=== PATIENT | female | born 1965 | race Caucasian/White ===

== ENCOUNTER → 2017-11-25 | Outpatient (CLI) | payer OTHER ==
[~2017-11-25] MED LIST: BUPR-79 PO; CLR10 PO; FLUO20CA35 PO; PANT40TA PO
--- NOTE | 2017-11-26 14:04 | MAMMOGRAPHY REPORT ---
BILATERAL DIGITAL SCREENING MAMMOGRAM TOMOSYNTHESIS WITH CAD: 11/25/2017 CLINICAL HISTORY: Routine screening. Patient has no complaints. TECHNIQUE: Breast tomosynthesis in addition to standard 2D mammography was performed. Current study was also evaluated with a Computer Aided Detection (CAD) system. COMPARISON: Comparison is made to exams dated: 10/29/2010 mammogram, 09/24/2009 mammogram - [facility], 09/19/2008, and 08/20/2005 mammogram - [facility]. BREAST COMPOSITION: There are scattered areas of fibroglandular density in both breasts. FINDINGS: There are new linear branching microcalcifications in the approximate 12:00 anterior throu gh posterior left breast, spanning approximately 10 cm that are new comparing to the prior mammogram performed in 2010. Additional spot magnification views are recommended. Possible additional faint c lusters of microcalcifications in the lateral middle one third and anterior one third of the left satya ast, warranting additional spot magnification views. No other suspicious mass, architectural distortion or cluster of microcalcifications is seen. IMPRESSION: ACR BI-RADS CATEGORY 0: INCOMPLETE EVALUATION: NEED ADDITIONAL IMAGING EVALUATION The new linear branching left breast microcalcifications need additional imaging evaluation. The patient will be called to schedule an appointment. Approximately 10% of breast cancers are not detected with mammography. A negative mammographic report should not delay biopsy if a clinically suggestive mass is present. Pat Anders M.D. ay/:11/26/2017 08:13:21 Aerospace Mechanic: Isatu Crane, [facility] letter sent: Addl Imaging 0 BI-RADS Code: ACR BI-RADS Category 0: Incomplete Evaluation: Need Additional Imaging Evaluation
== END | disposition home or self-care (01) ==
LOC: C.MAMM 17:27
PROVIDERS: ATTEND Student in an Organized Health Care Education/Training Program
DX: Z12.31 Encounter for screening mammogram for malignant neoplasm of breast (principal)

== ENCOUNTER → 2017-11-27 | Outpatient (CLI) | payer OTHER ==
--- NOTE | 2017-11-30 08:08 | MAMMOGRAPHY REPORT ---
UNILATERAL LEFT DIGITAL DIAGNOSTIC MAMMOGRAM: 11/27/2017 CLINICAL HISTORY: 52-year-old woman called back from screening mammography for a newly visualized lef t breast microcalcifications. TECHNIQUE: Spot magnification left CC and ML views were obtained. COMPARISON: Comparison is made to exams dated: 11/25/2017 mammogram, 10/29/2010 mammogram, 09/24/2009 mammogram - [facility], 09/19/2008, and 08/20/2005 mammogram - [facility]. BREAST COMPOSITION: There are scattered areas of fibroglandular density in the left breast. FINDINGS: There are fine pleomorphic and linear branching calcifications in the 12:00 left breast ex tending approximately 9.3 cm in AP dimension, extending throughout the anterior, middle and posterior one third of the breast. Measurements are best obtained from the screening exam given that not all the calcifications are included in the suuha-vl-iffe with each spot magnification view obtained today . When comparing back to prior available mammograms, these calcifications are new and are suspicious for DCIS given their morphology. Definitive characterization with tissue sampling is recommended. In addition to the fine pleomorphic and linear branching calcifications, other small groupings of saqib nt amorphous calcifications are identified in the far lateral, middle one third of the left breast on the CC spot magnification views, thought to project in the approximate 3:00 axis based on the full f ield left MLO view. When comparing to prior mammograms, these faint amorphous calcifications are als o new and considered indeterminate. A stereotactic guided biopsy is recommended given that the most prominent grouping of amorphous calcifications is located 5 cm lateral to the linear branching calcif ications. IMPRESSION: ACR BI-RADS CATEGORY 5: HIGHLY SUGGESTIVE OF MALIGNANCY 1. Left breast stereotactic guided biopsy is recommended for new suspicious fine pleomorphic and lizett ear branching calcifications extending over 9 cm in AP dimension within the 12:00 left breast. 2. A second left breast stereotactic guided biopsy is recommended for a smaller grouping of amorphou s microcalcifications in the lateral, approximate 3:00 left breast that is also new comparing to prio r exams. These calcifications differ in morphology from the highly suspicious linear branching calci fications and are located 5 cm lateral to the linear branching calcifications. These results and recommendations were discussed with the patient at the time of the exam. She tenta tively scheduled the left breast stereotactic biopsies prior to leaving our department. Approximately 10% of breast cancers are not detected with mammography. A negative mammographic report should not delay biopsy if a clinically suggestive mass is present. Pat Anders M.D. ay/:11/27/2017 14:25:21 Bird Raiser: Denisse HUDSON(R)(M), [facility] letter sent: Abnormal 4/5 BI-RADS Code: ACR BI-RADS Category 5: Highly Suggestive Of Malignancy
--- NOTE | 2017-12-04 17:11 | CODING QUERY NO DIAGNOSIS ---
TREATMENT RENDERED WITHOUT A DIAGNOSIS To promote full compliance with coding requirements relating to patient care, physician participation is requested in all cases of body team member uncertainty. Please assist us with providing a diagnosis/symptom for the test(s) below: A diagnosis/symptom was not documented on your Order. A valid diagnosis/symptom is required to bill all insurances. Please remember that we are unable to code a diagnosis of rule out, probable, possible, questionable, or suspected. DATE OF SERVICE: 11/27/17 Tests that require a diagnosis: * DIAGNOSTIC LEFT MAMMOGRAM DIAGNOSIS: Provider Signature: Date: Thank you [facility]Austina [facility] Information Management Once completed, please kindly fax back to [phone] For questions please call [phone]
== END | disposition home or self-care (01) ==
LOC: C.MAMM 12:40
PROVIDERS: ATTEND Student in an Organized Health Care Education/Training Program
DX: R92.8 Other abnormal and inconclusive findings on diagnostic imaging of breast (principal); R92.0 Mammographic microcalcification found on diagnostic imaging of breast; R92.1 Mammographic calcification found on diagnostic imaging of breast

== ENCOUNTER → 2017-12-11 | Outpatient (CLI) | payer OTHER ==
--- NOTE | 2017-12-11 13:30 | Discharge Instructions ---
Discharge Instructions Procedure Procedure Date: Dec 11, 2017. Reason for visit: Left Calcs X2. Discharge Discharge Date: Dec 11, 2017. Discharge Diagnosis: status post breast biopsy Instructions Activity Recommendations: Additional Limitations (see below) Return to School/Work: no limitations Recommended Home Diet: No Limitations Provider Instructions: ACTIVITY RECOMMENDATIONS: * No lifting, pushing, pulling or exercising the affected side for three days. RETURN TO SCHOOL/WORK: * You may return to work/school after the procedure, but do not perform any strenuous activities for 24 to 48 hours. MEDICATIONS: * Tylenol (two 325 mg) every four to six hours if needed for mild pain (if not allergic to Tylenol). DIET: * Resume previous diet. SPECIAL CARE INSTRUCTIONS: * Keep biopsy site dry for 24 hours. May shower after 24 hours, but do not soak (bathe) incision. * May remove Tegaderm (plastic patch) tomorrow AFTER showering. * Leave the steri-strips on for one week. Allow the steri-strips to fall off by themselves. If not off after one week, you may remove them. You may place a Bandaid crosswise over the strips, if desired. * Apply ice 10 minutes on and 10 minutes off as needed. * Wear a bra at bedtime to sleep more comfortably for 2-3 days. * Your referring physician should have the results after approximately 5 to 7 business days. * Call for unusual bleeding, fever, drainage, etc or if you have any questions call during normal business hours or after hours call Dr Villarreal, . FOLLOW UP VISIT: Follow-up with Referring Physician as scheduled. Allergies Coded Allergies: Sulfa Drugs (Verified Allergy, Severe, SHORTNESS OF BREATH, 09/22/16) Codeine (Verified Adverse Reaction, Unknown, "SICK" WITH TYLENOL W/CODEINE , 09/22/16) Remy Matos Recommendations: Call your doctor if: * Temperature above 101 degrees * Pain not relieved by pain medicine ordered * There is increased drainage or redness from any incision * You have any unanswered questions or concerns. Your Doctors Instructions noted above were prepared by provider Beth Villarreal. Patient Signature Section: Patient Instructions Signature Page Renetta Stevens Patient (or Guardian) Signature/Date: I have read and understand the instructions given to me by my caregivers. Caregiver/RN/Doctor Signature/Date: The above-named patient and/or guardian has received patient instructions on this date. + Original Patient Signature Page (only) stays with chart. Please make copy for patient.
--- NOTE | 2017-12-14 15:19 | MAMMOGRAPHY REPORT ---
UNILATERAL LEFT DIGITAL DIAGNOSTIC MAMMOGRAM: 12/11/2017 CLINICAL HISTORY: Status post left breast stereotactic biopsy 2. TECHNIQUE: Postprocedural left CC and ML views were obtained. COMPARISON: Comparison is made to exams dated: 11/27/2017 mammogram, 11/25/2017 mammogram, and 10/29/19 11 mammogram - [facility]. BREAST COMPOSITION: There are scattered areas of fibroglandular density in the left breast. FINDINGS: A new dumbbell-shaped biopsy marker clip is seen at the site of the biopsied calcifications in the left 12:00 breast (site "A"). A new T-shaped biopsy clip is seen at the site of the biopsied calcifications in the left 3:00 breast (site "B"). No significant postbiopsy hematoma is seen. IMPRESSION: POST PROCEDURE IMAGING FOR MARKER PLACEMENT New biopsy marker clips status post left breast stereotactic biopsy 2. Pathology results are pendin g. Approximately 10% of breast cancers are not detected with mammography. A negative mammographic report should not delay biopsy if a clinically suggestive mass is present. Beth Villarreal M.D. ah/:12/11/2017 14:05:34 Machine Fixer: Ankita HUDSON(R)(M), [facility] BI-RADS Code: Post Procedure Imaging For Marker Placement
== END | disposition home or self-care (01) ==
LOC: C.MAMM 12:23
PROVIDERS: ATTEND Student in an Organized Health Care Education/Training Program
DX: R92.0 Mammographic microcalcification found on diagnostic imaging of breast (principal); D05.92 Unspecified type of carcinoma in situ of left breast

== ENCOUNTER → 2017-12-29 | Outpatient (CLI) | payer OTHER ==
[~2017-12-29] MED LIST changes: +GADAVIST IV PRN
--- NOTE | 2017-12-31 07:52 | MAMMOGRAPHY REPORT ---
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 She presents for preoperative evaluation of both breasts. COMPARISON: Comparison is made to exams dated: 12/11/2017 stereotactic biopsy, 12/11/2017 stereotactic b iopsy, 12/11/2017 mammogram, 11/27/2017 mammogram, 11/25/2017 mammogram, and 10/29/2010 mammogram - [facility]. TECHNIQUE: Using a 1.5 Nicole magnet and dedicated breast coil, multisequence axial images were obtain ed through the breasts. After uneventful IV administration of 14 mL of Gadavist, dynamic multiphase contrast-enhanced axial images, and sagittal postcontrast were obtained. Temporal subtraction axial images and 3-D MIP images are provided. Everything was then reviewed on a 3-D workstation, [employer]. FINDINGS: Right breast: There is minimal background parenchymal enhancement. No suspicious enhancing mass, non -mass enhancement, suspicious kinetics or architectural distortion identified in the right breast. N o focal skin thickening or nipple retraction. No suspicious right axillary, subpectoral or internal mammary lymphadenopathy. Left breast: There is minimal background parenchymal enhancement of the left breast. There is suscep tibility artifact from a metallic biopsy marker clip in the 12:00 middle one third of the left breast , denoting the site of biopsy-proven high-grade ductal carcinoma in situ. There is linear non-mass e nhancement extending anterior and posterior to the biopsy marker clip which appears to be confined to one segment, measuring 7.0 cm in AP by 1.1 cm in craniocaudal by 0.8 cm in transverse dimension. A second small focus of susceptibility artifact is identified in the 3:00 to 4:00 middle one third of t he left breast, denoting the site of prior benign stereotactic biopsy. No other suspicious enhancing masses, non-mass enhancement, architectural distortion or suspicious kinetics identified in the left breast. No evidence of nipple retraction. The retromammary fat is intact. No suspicious left axil fly, subpectoral or internal mammary lymphadenopathy. IMPRESSION: ACR BI-RADS CATEGORY 6: KNOWN BIOPSY PROVEN MALIGNANCY 1. Linear non-mass enhancement in the 12:00 middle one third of the left breast denoting the biopsy- proven high-grade ductal carcinoma in situ, extending over 7 cm in AP by 1.1 cm in craniocaudal by 0. 8 cm in transverse dimension, which appears to be confined to one segment. No associated masslike en hancement or other suspicious enhancement seen in the left breast. 2. No MRI evidence of malignancy in the right breast. 3. No suspicious axillary adenopathy bilaterally. The patient will receive written notification of the results. Pat Anders M.D. ay/:12/29/2017 20:37:09 Radioactivity Technician: clinic licensed practical nurse, [facility] letter sent: Birad 6 BI-RADS Code: ACR BI-RADS Category 6: Known Biopsy Proven Malignancy
== END | disposition home or self-care (01) ==
LOC: C.MRI 15:00
PROVIDERS: ATTEND Surgery
DX: D05.12 Intraductal carcinoma in situ of left breast (principal)

== ENCOUNTER 2020-05-17 11:39 | Observation (INO) ==
--- OUTSIDE RECORDS SUMMARY | 2020-05-17 11:40 | External Medical Summary | Continuity of Care Document ---
:1965 Author Name Bhupinder Silvestre, Provider Address Unavailable Unavailable , Care Team Providers Name Role Phone Unavailable Unavailable Unavailable Salina Silvestre, Colten Allan Unavailable [email or web address] ROLLINS Unavailable Unavailable Unavailable Unavailable Unavailable Problems Allergic rhinitis due to dust (477.8) (J30.89) Allergies and Adverse Reactions No Known Drug Allergies (Allergy) Medications Estradiol 2 MG Oral Tablet; TAKE 1 TABLET DAILY DIRECTED. Konrad Downing Start: 29-Oct-2010 Refills: 0 Fluticasone Propionate 50 MCG/ACT Nasal Suspension; USE 2 SPRAYS IN EACH NOSTRIL ONCE DAILY Konrad Downing Start: 29-Oct-2010 Quantity: 3 Refills: 3 Fexofenadine HCl - 180 MG Oral Tablet; TAKE 1 TABLET DAILY. Konrad Downing Start: 29-Oct-2010 Quantity: 90 Refills: 3 Procedures History of Dilation And Curettage Status : Completed Immunizations Immunizations not documented Social History - Smoking Status Ex-smoker Plan of Treatment Planned Observations Planned Goals not documented Results No Known Results Results not documented
[2020-05-17 12:11] LABS: Basophils # (auto) 0.02 K/uL (0-0.2); Basophils % (auto) 0.3 %; Eosinophils # (auto) 0.06 K/uL (0-0.5); Eosinophils % (auto) 0.8 %; Hematocrit (blood only) 40.7 % (37-47); Hemoglobin 13.7 g/dL (12.0-16.0); Immature Granulocytes # (auto) 0.02 K/uL (0.00-0.02); Immature Granulocytes % (auto) 0.3 %; Lymphocytes # (auto) 2.25 K/uL (1.2-3.4); Lymphocytes % (auto) 29.9 %; Mean Corpuscular Hgb Conc 33.7 g/dL (32-36); Mean Corpuscular Volume 89.3 fL (80-100); Mean Platelet Volume 10.3 fL (7.4-10.4); Monocytes # (auto) 0.53 K/uL (0.11-0.59); Neutrophils # (auto) 4.65 K/uL (1.4-6.5); Neutrophils % (auto) 61.7 %; Platelet Count 207 K/uL (130-400); RDW Coefficient of Variation 13.5 % (11.5-14.5); RDW Standard Deviation 43.7 fL (36.4-46.3); Red Blood Count 4.56 M/uL (4.2-5.4); White Blood Count 7.53 K/uL (4.8-10.8)
--- NOTE | 2020-05-17 12:29 | XRay Report ---
XR chest 1V portable CLINICAL HISTORY: Chest Pain dyspnea COMPARISON STUDY: 11/16/2010 FINDINGS: The bones soft tissues and hemidiaphragms are normal. The cardiomediastinal silhouette is n ormal. The lungs are clear. The pulmonary vasculature is normal. IMPRESSION: Negative chest. ACT 112: Negative or not required by law. The above report was generated using voice recognition software. It may contain grammatical, syntax or spelling errors. Electronically signed by: Richard Delgado M.D. 05/17/2020 12:27 PM
[2020-05-17 12:30] LABS: Alanine Aminotransferase 22 U/L (12-78); Albumin Level 3.5 gm/dl (3.4-5.0); Aspartate Aminotransferase 16 U/L (15-37); BUN Creatinine Ratio 17.1 (10-20); Blood Urea Nitrogen 11 mg/dl (7-18); Calcium 8.3 mg/dl (8.5-10.1); Carbon Dioxide 23 mmol/L (21-32); Chloride 110 mmol/L (98-107); Creatinine Clr Calc Pharmacy 136.3 ml/min; Est GFR (Non-African American) 99.2; Glucose 101 mg/dl (70-99); Potassium 3.8 mmol/L (3.5-5.1); Sodium 140 mmol/L (136-145)
[2020-05-17 12:34] LABS: Albumin Globulin Ratio 0.9 (0.9-2); Alkaline Phosphatase 81 U/L (45-117); Bilirubin,Total 0.9 mg/dl (0.2-1); Globulin 3.8 gm/dl (2.5-4.0); Total Protein 7.3 gm/dl (6.4-8.2); Troponin I < 0.015 ng/ml (0-0.045)
--- NOTE | 2020-05-17 12:40 | Emergency Department Note ---
History of Present Illness General Chief complaint: Chest Pain Stated complaint: CHEST PAIN Time Seen by Provider: 05/17/20 12:05 Source: patient Limitations: no limitations History of Present Illness Provider complaint: Chest pain Onset (ago): hour(s) Location: chest Radiation: back, neck and extremity (Both arms and neck and back) Severity: mild Pain Consistency: + now resolved Maximum Pain Intensity: 3 Quality: + other (Pressure) Exacerbated By: + none Associated symptoms: no cough, no diaphoresis, no fever/chills, no nausea/vomiting and no shortness of breath This is a 55-year-old female who presents with an episode of chest pain starting 1115 ending at 11:35 AM today. The patient states she was driving at the time. She developed pressure in the middle of her chest which radiated down both arms and into her neck and ears as well as her back. She had no associated shortness of breath, diaphoresis, nausea or lightheadedness. She denies any recent fever, cough or cold symptoms, abdominal pain, vomiting or diarrhea, urinary symptoms or leg swelling or pain. She denies any history of diabetes, hypertension, high cholesterol or family history of cardiac disease. She rated her pain a 3 out of 10 in severity and states currently it is 0. Home Medications Home Medications Medication Instructions Recorded Confirmed Type cetirizine [Zyrtec] 10 mg PO DAILY 05/17/20 05/17/20 History fluoxetine 20 mg PO DAILY 05/17/20 05/17/20 History topiramate 25 mg PO BID 05/17/20 05/17/20 History Allergies Allergy/AdvReac Type Severity Reaction Status Date / Time Sulfa (Sulfonamide Allergy Severe SHORTNESS Verified 05/17/20 13:34 Antibiotics) OF BREATH adhesive Allergy Unknown Redness of Verified 05/17/20 13:34 Skin codeine AdvReac Unknown "SICK" Verified 05/17/20 13:34 WITH TYLENOL W/CODEINE Past Med/Surg History Medical History (Updated 05/17/20 @ 17:02 by Leon Benton MD) Anxiety Breast cancer Migraine headache Surgical History (Updated 05/17/20 @ 15:06 by Corie Ceja PA-C) History of cholecystectomy History of hysterectomy History of mastectomy Family History (Updated 05/17/20 @ 15:01 by Corie Ceja PA-C) Mother Dyslipidemia Social History (Updated 05/17/20 @ 15:08 by Corie Ceja PA-C) Smoking Status: Former smoker Hx Alcohol Use: Yes (2 drinks per day) Hx Substance Use: No Review of Systems See HPI for pertinent positives & negatives. and A total of 10 systems reviewed and were otherwise negative Physical Exam Vital Signs Vital Signs - 24 hr 05/17/20 11:42 05/17/20 11:50 05/17/20 13:52 Temperature 36.9 C Temperature Source Oral Pulse Rate 78 69 62 Pulse Rate [Finger] Pulse Rate from SpO2 Sensor 69 64 Respiratory Rate 18 14 14 Respiratory Depth Normal Blood Pressure 164/88 H 145/94 H 141/82 H Blood Pressure [Right Arm] Blood Pressure Mean 113 105 87 Blood Pressure Mean [Right Arm] Pulse Oximetry 98 96 99 Oxygen Delivery Method Room Air Sepsis Recent Fever Within 48 Hours No Sepsis New/Unexplained Change in Mental Status N/A Sepsis Action Taken by Nursing No Action Required 05/17/20 14:00 05/17/20 14:30 05/17/20 14:56 Temperature Temperature Source Pulse Rate 60 65 68 Pulse Rate [Finger] Pulse Rate from SpO2 Sensor 60 65 66 Respiratory Rate 14 14 18 Respiratory Depth Blood Pressure 131/79 137/91 137/91 Blood Pressure [Right Arm] Blood Pressure Mean 91 99 99 Blood Pressure Mean [Right Arm] Pulse Oximetry 98 99 98 Oxygen Delivery Method Sepsis Recent Fever Within 48 Hours Sepsis New/Unexplained Change in Mental Status Sepsis Action Taken by Nursing 05/17/20 15:01 05/17/20 15:31 05/17/20 15:32 Temperature Temperature Source Pulse Rate 66 70 66 Pulse Rate [Finger] Pulse Rate from SpO2 Sensor 66 69 66 Respiratory Rate 14 17 17 Respiratory Depth Blood Pressure 124/92 122/93 Blood Pressure [Right Arm] Blood Pressure Mean 96 110 Blood Pressure Mean [Right Arm] Pulse Oximetry 99 99 100 Oxygen Delivery Method Room Air Sepsis Recent Fever Within 48 Hours Sepsis New/Unexplained Change in Mental Status Sepsis Action Taken by Nursing 05/17/20 16:58 Temperature Temperature Source Pulse Rate Pulse Rate [Finger] 66 Pulse Rate from SpO2 Sensor Respiratory Rate 18 Respiratory Depth Blood Pressure Blood Pressure [Right Arm] 115/78 Blood Pressure Mean Blood Pressure Mean [Right Arm] 90 Pulse Oximetry 97 Oxygen Delivery Method Room Air Sepsis Recent Fever Within 48 Hours Sepsis New/Unexplained Change in Mental Status Sepsis Action Taken by Nursing Constitutional: Vital signs reviewed. Eyes: Pupils are equal round reactive to light. Conjunctiva are noninjected. ENT: Pharynx is clear without erythema or exudate. Mucous membranes are moist. Neck supple without meningeal signs. Respiratory: Clear to auscultation bilaterally. Breath sounds are equal bilaterally. Cardiovascular: Regular rate and rhythm. No rubs or gallops. GI: Soft, nondistended and nontender. Bowel sounds are present. Musculoskeletal: No peripheral edema. No lower extremity tenderness. Integumentary: No cyanosis. or jaundice. Neurological: The patient is awake and alert. No focal deficits. Psychiatric: Normal affect. Not anxious appearing. Course Administered Medications Discontinued Medications Aspirin (Aspirin Chew 324 Mg) 324 mg PO NOW STA Stop: 05/17/20 13:54 Last Admin: 05/17/20 13:54 Dose: Not Given Documented by: [id number] Aspirin (Aspirin Chew 324 Mg) Confirm Administered Dose 324 mg .ROUTE .[employer]-MED ONE Stop: 05/17/20 13:51 Last Admin: 05/17/20 13:51 Dose: 324 mg Documented by: [id number] Medical Decision Making Differential Diagnosis GERD, anxiety, unstable angina, ME, pleurisy Medical Records Attestation: I reviewed the patient's medical records. I did perform a limited focused review of portions of the patient's old chart on the electronic medical record. The patient has had no recent pertinent visits to this hospital. Home Medications Current Medication List: was personally reviewed by me Laboratory Data Attestation: I reviewed the patient's lab results. Result diagrams: 05/17/20 12:00 05/17/20 12:00 Lab Results 05/17/20 05/17/20 05/17/20 Range/Units 12:00 12:00 12:00 WBC 7.53 (4.8-10.8) K/uL RBC 4.56 (4.2-5.4) M/uL Hgb 13.7 (12.0-16.0) g/dL Hct 40.7 (37-47) % MCV 89.3 (80-100) fL MCH 30.0 (25-34) pg MCHC 33.7 (32-36) g/dL RDW Std Deviation 43.7 (36.4-46.3) fL RDW Coeff of Casi 13.5 (11.5-14.5) % Plt Count 207 (130-400) K/uL MPV 10.3 (7.4-10.4) fL Immature Gran % (Auto) 0.3 % Neut % (Auto) 61.7 % Lymph % (Auto) 29.9 % [place] % (Auto) 7.0 % Eos % (Auto) 0.8 % Baso % (Auto) 0.3 % Neut # (Auto) 4.65 (1.4-6.5) K/uL Lymph # (Auto) 2.25 (1.2-3.4) K/uL [place] # (Auto) 0.53 (0.11-0.59) K/uL Eos # (Auto) 0.06 (0-0.5) K/uL Baso # (Auto) 0.02 (0-0.2) K/uL Immature Gran # (Auto) 0.02 (0.00-0.02) K/uL PT Cancelled INR Cancelled APTT Cancelled PTT Ratio Cancelled Sodium 140 (136-145) mmol/L Potassium 3.8 (3.5-5.1) mmol/L Chloride 110 H (98-107) mmol/L Carbon Dioxide 23 (21-32) mmol/L Anion Gap 7.0 (3-11) BUN 11 (7-18) mg/dl Creatinine 0.65 (0.6-1.2) mg/dl Est Cr Clr Drug Dosing 136.3 ml/min Est GFR ( Amer) 115.0 Est GFR (Non-Af Amer) 99.2 BUN/Creatinine Ratio 17.1 (10-20) Glucose 101 H (70-99) mg/dl Calcium 8.3 L (8.5-10.1) mg/dl Total Bilirubin 0.9 (0.2-1) mg/dl AST 16 (15-37) U/L ALT 22 (12-78) U/L Alkaline Phosphatase 81 (45-117) U/L Troponin I < 0.015 (0-0.045) ng/ml Total Protein 7.3 (6.4-8.2) gm/dl Albumin 3.5 (3.4-5.0) gm/dl Globulin 3.8 (2.5-4.0) gm/dl Albumin/Globulin Ratio 0.9 (0.9-2) 05/17/20 Range/Units 12:42 WBC (4.8-10.8) K/uL RBC (4.2-5.4) M/uL Hgb (12.0-16.0) g/dL Hct (37-47) % MCV (80-100) fL MCH (25-34) pg MCHC (32-36) g/dL RDW Std Deviation (36.4-46.3) fL RDW Coeff of Casi (11.5-14.5) % Plt Count (130-400) K/uL MPV (7.4-10.4) fL Immature Gran % (Auto) % Neut % (Auto) % Lymph % (Auto) % [place] % (Auto) % Eos % (Auto) % Baso % (Auto) % Neut # (Auto) (1.4-6.5) K/uL Lymph # (Auto) (1.2-3.4) K/uL [place] # (Auto) (0.11-0.59) K/uL Eos # (Auto) (0-0.5) K/uL Baso # (Auto) (0-0.2) K/uL Immature Gran # (Auto) (0.00-0.02) K/uL PT 12.0 INR 1.1 APTT 26.9 PTT Ratio 1.0 Sodium (136-145) mmol/L Potassium (3.5-5.1) mmol/L Chloride (98-107) mmol/L Carbon Dioxide (21-32) mmol/L Anion Gap (3-11) BUN (7-18) mg/dl Creatinine (0.6-1.2) mg/dl Est Cr Clr Drug Dosing ml/min Est GFR ( Amer) Est GFR (Non-Af Amer) BUN/Creatinine Ratio (10-20) Glucose (70-99) mg/dl Calcium (8.5-10.1) mg/dl Total Bilirubin (0.2-1) mg/dl AST (15-37) U/L ALT (12-78) U/L Alkaline Phosphatase (45-117) U/L Troponin I (0-0.045) ng/ml Total Protein (6.4-8.2) gm/dl Albumin (3.4-5.0) gm/dl Globulin (2.5-4.0) gm/dl Albumin/Globulin Ratio (0.9-2) Imaging Data Radiologist's Impression: XR chest 1V portable CLINICAL HISTORY: Chest Pain dyspnea COMPARISON STUDY: 11/16/2010 FINDINGS: The bones soft tissues and hemidiaphragms are normal. The cardiomediastinal silhouette is normal. The lungs are clear. The pulmonary vasculature is normal. IMPRESSION: Negative chest. ACT 112: Negative or not required by law. The above report was generated using voice recognition software. It may contain grammatical, syntax or spelling errors. Electronically signed by: Richard Delgado M.D. 05/17/2020 12:27 PM ECG Data Attestation: I personally reviewed and interpreted this ECG as follows: Indication: + chest pain Rate (beats per minute): 72 Rhythm: + normal sinus ECG Intervals/blocks: + Normal QRS ECG ST segments: no ST depression and no ST elevation ECG Findings: no PVCs Blood Pressure Blood Pressure Findings: Elevated blood pressure Blood Pressure Disposition: Referred to patients primary care provider MDM Narrative I did evaluate the patient as noted above. IV access was established. I did place an order for continuous cardiac monitoring. The monitor showed normal sinus rhythm with a rate of 76 bpm. I did order and personally review the patient's 12-lead EKG as described above. She has no evidence of acute ischemia. I did personally reviewed the images of the patient's chest x-ray as described above. She has no evidence of pneumonia. I did order and review the patient's blood work as noted in the electronic medical record. She does not have a leukocytosis or anemia. Troponin is negative, although this was drawn only less than an hour after onset of chest pain. Electrolytes are unremarkable. I did discuss the test results with the patient. She is currently asymptomatic. She does have a heart score of 4. She could not be ruled out by the heart pathway given her heart score. I therefore recommended hospitalization for repeat cardiac biomarkers and further evaluation. She did not wish to stay as she was concerned about financial issues. I did speak to cardiology to discuss possible stress testing but unfortunately the patient would require a second troponin at 3 PM after which it would be unclear if she could have a stress test and it was also unlikely that the patient would be able to tolerate an exercise stress test. She conferred with her and they talk to their insurance company. She was agreeable with hospitalization. I did discuss case with the hospitalist and comp field case manager. Impression & Plan Chest pain Discharge Plan Visit Data Chief Complaint: Chest Pain Stated Complaint: CHEST PAIN ED Provider: Leon Benton Discharge Problem: Chest pain Patient Disposition: Being Evaluated by Hospitalist Forms Stand Alone Forms: [facility] Prescriptions Prescriptions: No Action cetirizine [Zyrtec] 10 mg Tablet 10 mg PO DAILY RF: 0 topiramate 25 mg tablet 25 mg PO BID RF: 0 fluoxetine 20 mg capsule 20 mg PO DAILY RF: 0 Referrals Referrals: Zaynab Skinner DO [Primary Care Provider] -
[2020-05-17 13:12] LABS: INR 1.1 (0.9-1.1); Partial Thromboplastin Time 26.9 Seconds (21.0-31.0)
[2020-05-17] MEDS ORDERED: ASPIRIN CHEW 324 MG ONE (13:50)
[2020-05-17] MEDS ORDERED: ASPIRIN CHEW 324 MG PO STA (13:53)
--- NOTE | 2020-05-17 14:50 | History & Physical Report ---
Date of Service May 17, 2020 Assessment & Plan (1) Chest pain: Pt is 55 y/o F with PMH breast CA s/p surgery, anxiety, migraine VASQUEZ and obesity presented to ER with c/o CP today. Pt states was driving when she developed she developed anterior chest pressure with radiation bilateral neck an d bilateral arms. Patient states symptoms lasted approximately 20 minutes and self resolved. In ER pt afebrile, P: 78, R: 18, BP: 164/88, 98% on RA. Initial troponin negative. EKG sinus rhythm without acute ST changes No CP or other symptoms while in ER R/O ACS. Risk factors: obesity, prior tobacco use -Given 324mg aspirin -Monitor Vitals -Repeat EKG in am -Will trend troponin -Echo -lipid panel in am -Nitro prn CP and repeat EKG for CP -Cardiology consult (2) Anxiety: -Continue fluoxetine (3) Migraine headache: -Continue Topamax (4) Breast cancer: S/P bilateral mastectomy DVT Prophylaxis -SCDs Follows with Dr Zaynab Skinner for routine care Pt was seen and care coordinated with Dr Haque. See addendum History of Present Illness Chief Complaint: CP Primary Care Provider: Zaynab Skinner, DO Pt is 55 y/o F with PMH breast CA s/p surgery, anxiety, migraine VASQUEZ and obesity presented to ER with c/o CP today. Pt states was driving when she developed she developed anterior chest pressure with radiation bilateral neck and bilateral arms. Patient states symptoms lasted approximately 20 minutes and self resolved. Denies any shortness of breath, dizziness, palpitations, nausea, vomiting, diaphoresis. Since being in ER patient denies any recurrent chest pain or other symptoms. Denies fever/chills, diaphoresis, N/V/D/C, VASQUEZ, dizziness, syncope, vision changes, neck pain, orthopnea, cough, sore throat, choking, otalgia, rhinorrhea, abdominal pain, paresthesias, weakness, extremity weakness, extremity erythema, extremity edema, rashes, urinary symptoms. Patient quit smoking 2002 but smoked approximately 2 packs/week X 20 years. Denies family history of CAD. History echo 2016: EF: 60%, normal wall motion, no significant valve disease Allergies Allergy/AdvReac Type Severity Reaction Status Date / Time Sulfa (Sulfonamide Allergy Severe SHORTNESS Verified 05/17/20 13:34 Antibiotics) OF BREATH adhesive Allergy Unknown Redness of Verified 05/17/20 13:34 Skin codeine AdvReac Unknown "SICK" Verified 05/17/20 13:34 WITH TYLENOL W/CODEINE Home Medications Home Medications Medication Instructions Recorded Confirmed Type cetirizine [Zyrtec] 10 mg PO DAILY 05/17/20 05/17/20 History fluoxetine 20 mg PO DAILY 05/17/20 05/17/20 History topiramate 25 mg PO BID 05/17/20 05/17/20 History Past Med/Surg History Medical History Anxiety Breast cancer Migraine headache Surgical History History of cholecystectomy History of hysterectomy History of mastectomy Family History Mother Dyslipidemia Social History Smoking Status: Former smoker Second Hand Exposure: No; Do You Dip or Chew Tobacco: No; Hx Alcohol Use: Yes Alcohol type: hard liquor Hx Substance Use: No Preferred Language: Citizen Of [place] Communication Ability: Effective Beliefs That Will Affect Care: None Current Living Situation: Family Other Information That Helps Us Care for You: No Feels Safe at Home: Yes Safety Concerns: Feels Safe At This Time Review of Systems Review of Systems: All systems reviewed & are unremarkable except as noted in HPI & below Physical Exam Physical Exam: General: no distress, obese Head: normocephalic, atraumatic Eyes: conjunctiva non-injected, anicteric ENT: normal inspection external ears, nose, mucous membranes moist Neck: supple, trachea midline, ROM intact Lungs: clear, no respiratory distress, no wheezing/rhonchi/rales CV: RRR, no murmur, chest wall without rashes and non-tender to palpation, no pretibial edema Abd: normal BS, soft, protuberant, non-tender Ext: no cyanosis or erythema, no calf tenderness, ROM intact Neuro: A&O x 3, no focal deficits noted, normal affect Skin: warm, dry Results & Data Results & Data ([facility]) Vital Signs (Past 12 Hours) Vital Signs Temp Pulse Resp BP Pulse Ox 05/17/20 13:52 62 14 141/82 H 99 05/17/20 11:50 69 14 145/94 H 96 05/17/20 11:42 36.9 C 78 18 164/88 H 98 Laboratory Results Short CBC 05/17/20 Range/Units 12:00 WBC 7.53 (4.8-10.8) K/uL Hgb 13.7 (12.0-16.0) g/dL Hct 40.7 (37-47) % Plt Count 207 (130-400) K/uL BMP 05/17/20 12:00 Sodium 140 Potassium 3.8 Chloride 110 H Carbon Dioxide 23 BUN 11 Creatinine 0.65 Glucose 101 H Calcium 8.3 L Cardiac Enzymes 05/17/20 Range/Units 12:00 Troponin I < 0.015 (0-0.045) ng/ml Liver Function 05/17/20 Range/Units 12:00 Total Bilirubin 0.9 (0.2-1) mg/dl AST 16 (15-37) U/L ALT 22 (12-78) U/L Alkaline Phosphatase 81 (45-117) U/L Albumin 3.5 (3.4-5.0) gm/dl Diagnostic Findings CXR: IMPRESSION: Negative chest. ECG Rate (beats per minute): 72 Rhythm: sinus rhythm Supervising Physician Co-Signing Physician Notes I have seen and examined the patient and have discussed the case with the provider above. I agree with the assessment and plan as stated with the following exceptions. 55 yo F with no h/o CAD and only one episode of central chest pain that began today after eating one banana on an empty stomach. Pain self-resolved 20 minutes afterward and did not return. She refused any recent chest pain and reports the same exercise tolerance. There were no associated symptoms such as nausea, lightheadedness, SOB or palpitations surrounding this episode of pain. She also reports some coffee intake this morning. She was speaking with her mom and she reported she also cannot tolerate bananas on an empty stomach, and she feels this was the cause. She reports feeling there is n o need for a stress test which she is declining. Normal cardiac, and pulmonary exams. No peripheral edema. Normal neuro exam with no gross neurologic deficits. No increased respiratory effort and she has no paraspinal chest tenderness with palpation. Cardiology consultation-will await discharge recs. Suspect she will be discharged with close outpatient followup with PCP. Also she is requesting a work release with no restrictions prior to discharge. DO [facility]
[2020-05-17] MEDS ORDERED: NITROGLYCERIN SL 0.4 MG/TAB TAB SL PRN (17:34)
[2020-05-17] MEDS ORDERED: ACETAMINOPHEN 325 MG TAB PO PRN (17:34)
[2020-05-17] MEDS: TOPIRAMATE 25 MG TAB PO SCH (20:04)
--- NOTE | 2020-05-18 06:31 | Electrocardiogram Report ---
Test Reason : Blood Pressure : / mmHG Vent. Rate : 072 BPM Atrial Rate : 072 BPM P-R Int : 146 ms QRS Dur : 092 ms QT Int : 378 ms P-R-T Axes : 046 018 031 degrees QTc Int : 413 ms Normal sinus rhythm Normal ECG When compared with ECG of 01-JUL-2016 06:20, No significant change was found Confirmed by Manuel Ramirez ([id number]) on 05/18/2020 6:31:31 AM Referred By: Confirmed By:Manuel Ramirez
[2020-05-18 07:07] LABS: Hematocrit (blood only) 41.1 % (37-47); Mean Corpuscular Hemoglobin 30.8 pg (25-34); Mean Corpuscular Hgb Conc 34.1 g/dL (32-36); Mean Corpuscular Volume 90.3 fL (80-100); Platelet Count 210 K/uL (130-400); RDW Coefficient of Variation 13.6 % (11.5-14.5); RDW Standard Deviation 44.4 fL (36.4-46.3); Red Blood Count 4.55 M/uL (4.2-5.4); White Blood Count 6.07 K/uL (4.8-10.8)
[2020-05-18 07:11] VITALS: TEMP 98.2
[2020-05-18 07:36] LABS: BUN Creatinine Ratio 18.6 (10-20); Calcium 8.5 mg/dl (8.5-10.1); Creatinine Clr Calc Pharmacy 137.9 ml/min; Est GFR (African American) 115.6; Est GFR (Non-African American) 99.8; Potassium 3.8 mmol/L (3.5-5.1)
[2020-05-18] MEDS ORDERED: PERFLUTREN LIPID MICROSPHERE (DEFINITY) IV ONE (07:42)
[2020-05-18] MEDS: TOPIRAMATE 25 MG TAB PO SCH (08:08)
[2020-05-18] MEDS ORDERED: CETIRIZINE HCL 10 MG TABLET PO SCH (09:00)
[2020-05-18] MEDS ORDERED: ASPIRIN 81 MG ECTAB PO SCH (09:00)
[2020-05-18] MEDS ORDERED: FLUOXETINE HCL 20 MG CAP PO SCH (09:00)
--- NOTE | 2020-05-18 10:57 | Cardiology Consultation ---
Date of Consultation May 18, 2020 Assessment & Plan (1) Chest pain: Patient presents with single episode of substernal epigastric chest pain after eating a banana on empty stomach. No EKG findings or cardiac enzymes suggest ischemia. No significant cardiac risk factors Discussed options of management patient she wishes to be followed by primary care physician and declined stress testing is a reasonable decision given low likelihood of cardiac etiology Patient stable for discharge but will return with any recurrence of symptoms. Follow-up with primary care History of Present Illness Reason for Consultation: Chest pain Requesting Physician: Dr. Sin Attending Physician: Sammy Sin MD History of Present Illness Patient is a 55-year-old female without prior history of cardiac disease and without significant cardiac risk factors who yesterday while driving and eating a banana on an empty stomach developed mid substernal and epigastric chest discomfort lasting less than 20 minutes. Symptoms spontaneously resolved. EKG performed nearly immediately after symptoms resolve demonstrated normal tracing. Serial cardiac enzymes were have returned negative for injury or ischemia and repeat EKG this morning remains normal. Echocardiogram is normal Patient has no prior history of myocardial infarction angina or congestive heart failure. Notes no history of diabetes mellitus hypertension or hyperlipidemia. Patient is non-smoker and carries no family history of coronary disease Further review of systems she denies TIA or stroke, rheumatic fever scarlet fever, renal or hepatic disease. Notes no bleeding difficulties. Appetite and weight have been stable. Generally good exercise tolerance with activities about home Allergies Allergy/AdvReac Type Severity Reaction Status Date / Time Sulfa (Sulfonamide Allergy Severe SHORTNESS Verified 05/17/20 13:34 Antibiotics) OF BREATH adhesive Allergy Unknown Redness of Verified 05/17/20 13:34 Skin codeine AdvReac Unknown "SICK" Verified 05/17/20 13:34 WITH TYLENOL W/CODEINE Home Medications Home Medications Medication Instructions Recorded Confirmed Type cetirizine [Zyrtec] 10 mg PO DAILY 05/17/20 05/17/20 History fluoxetine 20 mg PO DAILY 05/17/20 05/17/20 History topiramate 25 mg PO BID 05/17/20 05/17/20 History Patient History Medical History Anxiety Breast cancer Migraine headache Surgical History History of cholecystectomy History of hysterectomy History of mastectomy Family History Mother Dyslipidemia Social History Smoking Status: Former smoker Second Hand Exposure: No; Do You Dip or Chew Tobacco: No; Hx Alcohol Use: Yes Alcohol type: hard liquor Hx Substance Use: No Preferred Language: Grenadian Communication Ability: Effective Beliefs That Will Affect Care: None Current Living Situation: Family Other Information That Helps Us Care for You: No Feels Safe at Home: Yes Safety Concerns: Feels Safe At This Time Review of Systems Review of Systems: All systems reviewed & are unremarkable except as noted in HPI & below Physical Exam Constitutional: WD/WN, vitals as above + obese Eyes: PERRL, conjunctivae normal, anicteric sclerae ENMT: external ear and nose normal, oropharynx normal Neck: trachea midline, no thyromegaly Respiratory: normal respiratory effort, lungs clear to auscultation Cardiovascular: Rate/Rhythm: regular rate and regular rhythm Heart Sounds: normal S1 and normal S2; no gallop and no murmur Palpation: normal PMI Vessels: normal carotid upstroke and radial pulses present; no JVD and no carotid bruit Extremities: no edema Chest (Breasts): Additional Comments: No chest tenderness Gastrointestinal (Abdomen): normal bowel sounds, soft, nontender, no hepatosplenomegaly Musculoskeletal: no cyanosis or clubbing, extremities motor strength 5/5 Skin: no rashes, warm and dry Neurologic: PERRL, EOMI, accommodation nl, no face palsy, no dysarthria Psychiatric: A+Ox3, euthymic affect Results & Data ([facility]) Vital Signs (Past 12 Hours) Vital Signs Temp Pulse Pulse Resp BP Pulse Ox 05/18/20 07:10 36.8 C 67 18 122/80 90 05/18/20 04:33 36.5 C 60 18 106/63 92 05/18/20 03:31 71 05/17/20 23:02 36.8 C 71 104/68 96 Laboratory Results Laboratory Results - last 24 hr 05/17/20 05/17/20 05/17/20 12:00 12:00 12:00 WBC 7.53 RBC 4.56 Hgb 13.7 Hct 40.7 MCV 89.3 MCH 30.0 MCHC 33.7 RDW Std Deviation 43.7 RDW Coeff of Casi 13.5 Plt Count 207 MPV 10.3 Immature Gran % (Auto) 0.3 Neut % (Auto) 61.7 Lymph % (Auto) 29.9 [place] % (Auto) 7.0 Eos % (Auto) 0.8 Baso % (Auto) 0.3 Neut # (Auto) 4.65 Lymph # (Auto) 2.25 [place] # (Auto) 0.53 Eos # (Auto) 0.06 Baso # (Auto) 0.02 Immature Gran # (Auto) 0.02 PT Cancelled INR Cancelled APTT Cancelled PTT Ratio Cancelled Sodium 140 Potassium 3.8 Chloride 110 H Carbon Dioxide 23 Anion Gap 7.0 BUN 11 Creatinine 0.65 Est Cr Clr Drug Dosing 136.3 Est GFR ( Amer) 115.0 Est GFR (Non-Af Amer) 99.2 BUN/Creatinine Ratio 17.1 Glucose 101 H Calcium 8.3 L Total Bilirubin 0.9 AST 16 ALT 22 Alkaline Phosphatase 81 Troponin I < 0.015 Total Protein 7.3 Albumin 3.5 Globulin 3.8 Albumin/Globulin Ratio 0.9 Triglycerides Cholesterol LDL Cholesterol, Calc VLDL Cholesterol, Calc HDL Cholesterol Cholesterol/HDL Ratio 05/17/20 05/17/20 05/18/20 12:42 17:57 00:09 WBC RBC Hgb Hct MCV MCH MCHC RDW Std Deviation RDW Coeff of Casi Plt Count MPV Immature Gran % (Auto) Neut % (Auto) Lymph % (Auto) [place] % (Auto) Eos % (Auto) Baso % (Auto) Neut # (Auto) Lymph # (Auto) [place] # (Auto) Eos # (Auto) Baso # (Auto) Immature Gran # (Auto) PT 12.0 INR 1.1 APTT 26.9 PTT Ratio 1.0 Sodium Potassium Chloride Carbon Dioxide Anion Gap BUN Creatinine Est Cr Clr Drug Dosing Est GFR ( Amer) Est GFR (Non-Af Amer) BUN/Creatinine Ratio Glucose Calcium Total Bilirubin AST ALT Alkaline Phosphatase Troponin I < 0.015 < 0.015 Total Protein Albumin Globulin Albumin/Globulin Ratio Triglycerides Cholesterol LDL Cholesterol, Calc VLDL Cholesterol, Calc HDL Cholesterol Cholesterol/HDL Ratio 05/18/20 05/18/20 06:31 06:31 WBC 6.07 RBC 4.55 Hgb 14.0 Hct 41.1 MCV 90.3 MCH 30.8 MCHC 34.1 RDW Std Deviation 44.4 RDW Coeff of Casi 13.6 Plt Count 210 MPV 10.0 Immature Gran % (Auto) Neut % (Auto) Lymph % (Auto) [place] % (Auto) Eos % (Auto) Baso % (Auto) Neut # (Auto) Lymph # (Auto) [place] # (Auto) Eos # (Auto) Baso # (Auto) Immature Gran # (Auto) PT INR APTT PTT Ratio Sodium 142 Potassium 3.8 Chloride 111 H Carbon Dioxide 25 Anion Gap 6.0 BUN 12 Creatinine 0.64 Est Cr Clr Drug Dosing 137.9 Est GFR ( Amer) 115.6 Est GFR (Non-Af Amer) 99.8 BUN/Creatinine Ratio 18.6 Glucose 97 Calcium 8.5 Total Bilirubin AST ALT Alkaline Phosphatase Troponin I Total Protein Albumin Globulin Albumin/Globulin Ratio Triglycerides 80 Cholesterol 190 LDL Cholesterol, Calc 106 VLDL Cholesterol, Calc 16 HDL Cholesterol 68 Cholesterol/HDL Ratio 3 (1) Chest pain Chest pain type: unspecified Qualified Code(s): R07.9 - Chest pain, unspecified
[2020-05-18 11:18] VITALS: PULSE 74; O2SAT 96
--- NOTE | 2020-05-18 11:39 | Hospitalist Progress Note ---
Date of Service May 18, 2020 Assessment & Plan (1) Chest pain: Pt is 55 y/o F with PMH breast CA s/p surgery, anxiety, migraine VASQUEZ and obesity presented to ER with c/o CP / epigastric pain. Pt states was driving when she developed anterior chest pressure with radiation bilateral neck and bilateral arms. Patient states symptoms lasted approximately 20 minutes and self resolved. Mentions she ate banana on empty stomach, which she thinks could have caused this In ER pt afebrile, P: 78, R: 18, BP: 164/88, 98% on RA. Initial troponin negative. EKG sinus rhythm without acute ST changes No CP or other symptoms while in ER R/O ACS. Risk factors: obesity, prior tobacco use -Given 324mg aspirin on admission -Repeat EKG in am -shows normal sinus rhythm, low voltage QRS, no significant change was found. -Troponin x3 - negative -Echo obtained -there were technical limitations due to patient's body habitus. Left ventricle is normal in size. Mild concentric LVH. No regional wall motion abnormalities noted. EF 55 to 60%. There is no gross valvular disease. The aortic root is normal size. There is no pericardial effusion. -lipid panel obtained - Total cholesterol 190, LDL 106, triglycerides 80, HDL 68 -Cardiology consulted - Discussed options of management, patient wishes to be followed by primary care physician and declined stress testing - is a reasonable decision given low likelihood of cardiac etiology. Patient stable for discharge but will return with any recurrence of symptoms. Follow-up with primary care (2) Anxiety: -Continue fluoxetine (3) Migraine headache: -Continue Topamax (4) Breast cancer: S/P bilateral mastectomy DVT Prophylaxis -SCDs Follows with Dr Zaynab Skinner for routine care Admission and Anticipated Discharge Date Admission Date: May 17, 2020 Subjective No acute events overnight. Patient is sitting up in bed, in no acute distress. She denies any chest pain, shortness of breath, palpitations, dizziness or lightheadedness. States she feels well overall, discussed her findings, and cardiology recommendations. Patient will follow-up with PCP. Review of Systems Review of Systems: All systems reviewed & are unremarkable except as noted in HPI & below Constitutional: no fever and no chills Respiratory: no cough and no dyspnea Cardiovascular: no chest pain and no palpitations Gastrointestinal: no abdominal pain and no vomiting Physical Exam Physical Exam: General: Middle-aged female, sitting up in bed, in no distress, obese Head: normocephalic, atraumatic Eyes: conjunctiva non-injected, anicteric ENT: normal inspection external ears, nose, mucous membranes moist Neck: supple, trachea midline, ROM intact Lungs: clear, no respiratory distress, no wheezing/rhonchi/rales CV: RRR, no murmur, chest wall without rashes and non-tender to palpation, no pretibial edema Abd: normal BS, soft, obese, non-tender Ext: no cyanosis or erythema, no lower extremity edema, no calf tenderness, ROM intact Neuro: A&O x 3, speech fluent, no facial asymmetry, moves all 4 extremities spontaneously and without difficulty Skin: warm, dry Results & Data Results & Data ([facility]) Vital Signs (Past 12 Hours) Vital Signs Temp Pulse Pulse Resp BP Pulse Ox 05/18/20 11:18 36.8 C 74 18 115/76 96 05/18/20 07:10 36.8 C 67 18 122/80 90 05/18/20 04:33 36.5 C 60 18 106/63 92 05/18/20 03:31 71 Laboratory Results 05/18/20 05/18/20 05/18/20 Range/Units 06:31 06:31 00:09 WBC 6.07 (4.8-10.8) K/uL RBC 4.55 (4.2-5.4) M/uL Hgb 14.0 (12.0-16.0) g/dL Hct 41.1 (37-47) % MCV 90.3 (80-100) fL MCH 30.8 (25-34) pg MCHC 34.1 (32-36) g/dL RDW Std Deviation 44.4 (36.4-46.3) fL RDW Coeff of Casi 13.6 (11.5-14.5) % Plt Count 210 (130-400) K/uL MPV 10.0 (7.4-10.4) fL Immature Gran % (Auto) % Neut % (Auto) % Lymph % (Auto) % [place] % (Auto) % Eos % (Auto) % Baso % (Auto) % Neut # (Auto) (1.4-6.5) K/uL Lymph # (Auto) (1.2-3.4) K/uL [place] # (Auto) (0.11-0.59) K/uL Eos # (Auto) (0-0.5) K/uL Baso # (Auto) (0-0.2) K/uL Immature Gran # (Auto) (0.00-0.02) K/uL PT INR APTT PTT Ratio Sodium 142 (136-145) mmol/L Potassium 3.8 (3.5-5.1) mmol/L Chloride 111 H (98-107) mmol/L Carbon Dioxide 25 (21-32) mmol/L Anion Gap 6.0 (3-11) BUN 12 (7-18) mg/dl Creatinine 0.64 (0.6-1.2) mg/dl Est Cr Clr Drug Dosing 137.9 ml/min Est GFR ( Amer) 115.6 Est GFR (Non-Af Amer) 99.8 BUN/Creatinine Ratio 18.6 (10-20) Glucose 97 (70-99) mg/dl Calcium 8.5 (8.5-10.1) mg/dl Total Bilirubin (0.2-1) mg/dl AST (15-37) U/L ALT (12-78) U/L Alkaline Phosphatase (45-117) U/L Troponin I < 0.015 (0-0.045) ng/ml Total Protein (6.4-8.2) gm/dl Albumin (3.4-5.0) gm/dl Globulin (2.5-4.0) gm/dl Albumin/Globulin Ratio (0.9-2) Triglycerides 80 (0-150) mg/dl Cholesterol 190 (0-200) mg/dl LDL Cholesterol, Calc 106 mg/dl VLDL Cholesterol, Calc 16 mg/dl HDL Cholesterol 68 mg/dl Cholesterol/HDL Ratio 3 05/17/20 05/17/20 05/17/20 Range/Units 17:57 12:42 12:00 WBC (4.8-10.8) K/uL RBC (4.2-5.4) M/uL Hgb (12.0-16.0) g/dL Hct (37-47) % MCV (80-100) fL MCH (25-34) pg MCHC (32-36) g/dL RDW Std Deviation (36.4-46.3) fL RDW Coeff of Casi (11.5-14.5) % Plt Count (130-400) K/uL MPV (7.4-10.4) fL Immature Gran % (Auto) % Neut % (Auto) % Lymph % (Auto) % [place] % (Auto) % Eos % (Auto) % Baso % (Auto) % Neut # (Auto) (1.4-6.5) K/uL Lymph # (Auto) (1.2-3.4) K/uL [place] # (Auto) (0.11-0.59) K/uL Eos # (Auto) (0-0.5) K/uL Baso # (Auto) (0-0.2) K/uL Immature Gran # (Auto) (0.00-0.02) K/uL PT 12.0 INR 1.1 APTT 26.9 PTT Ratio 1.0 Sodium 140 (136-145) mmol/L Potassium 3.8 (3.5-5.1) mmol/L Chloride 110 H (98-107) mmol/L Carbon Dioxide 23 (21-32) mmol/L Anion Gap 7.0 (3-11) BUN 11 (7-18) mg/dl Creatinine 0.65 (0.6-1.2) mg/dl Est Cr Clr Drug Dosing 136.3 ml/min Est GFR ( Amer) 115.0 Est GFR (Non-Af Amer) 99.2 BUN/Creatinine Ratio 17.1 (10-20) Glucose 101 H (70-99) mg/dl Calcium 8.3 L (8.5-10.1) mg/dl Total Bilirubin 0.9 (0.2-1) mg/dl AST 16 (15-37) U/L ALT 22 (12-78) U/L Alkaline Phosphatase 81 (45-117) U/L Troponin I < 0.015 < 0.015 (0-0.045) ng/ml Total Protein 7.3 (6.4-8.2) gm/dl Albumin 3.5 (3.4-5.0) gm/dl Globulin 3.8 (2.5-4.0) gm/dl Albumin/Globulin Ratio 0.9 (0.9-2) Triglycerides (0-150) mg/dl Cholesterol (0-200) mg/dl LDL Cholesterol, Calc mg/dl VLDL Cholesterol, Calc mg/dl HDL Cholesterol mg/dl Cholesterol/HDL Ratio 05/17/20 05/17/20 Range/Units 12:00 12:00 WBC 7.53 (4.8-10.8) K/uL RBC 4.56 (4.2-5.4) M/uL Hgb 13.7 (12.0-16.0) g/dL Hct 40.7 (37-47) % MCV 89.3 (80-100) fL MCH 30.0 (25-34) pg MCHC 33.7 (32-36) g/dL RDW Std Deviation 43.7 (36.4-46.3) fL RDW Coeff of Casi 13.5 (11.5-14.5) % Plt Count 207 (130-400) K/uL MPV 10.3 (7.4-10.4) fL Immature Gran % (Auto) 0.3 % Neut % (Auto) 61.7 % Lymph % (Auto) 29.9 % [place] % (Auto) 7.0 % Eos % (Auto) 0.8 % Baso % (Auto) 0.3 % Neut # (Auto) 4.65 (1.4-6.5) K/uL Lymph # (Auto) 2.25 (1.2-3.4) K/uL Young # (Auto) 0.53 (0.11-0.59) K/uL Eos # (Auto) 0.06 (0-0.5) K/uL Baso # (Auto) 0.02 (0-0.2) K/uL Immature Gran # (Auto) 0.02 (0.00-0.02) K/uL PT Cancelled INR Cancelled APTT Cancelled PTT Ratio Cancelled Sodium (136-145) mmol/L Potassium (3.5-5.1) mmol/L Chloride (98-107) mmol/L Carbon Dioxide (21-32) mmol/L Anion Gap (3-11) BUN (7-18) mg/dl Creatinine (0.6-1.2) mg/dl Est Cr Clr Drug Dosing ml/min Est GFR ( Amer) Est GFR (Non-Af Amer) BUN/Creatinine Ratio (10-20) Glucose (70-99) mg/dl Calcium (8.5-10.1) mg/dl Total Bilirubin (0.2-1) mg/dl AST (15-37) U/L ALT (12-78) U/L Alkaline Phosphatase (45-117) U/L Troponin I (0-0.045) ng/ml Total Protein (6.4-8.2) gm/dl Albumin (3.4-5.0) gm/dl Globulin (2.5-4.0) gm/dl Albumin/Globulin Ratio (0.9-2) Triglycerides (0-150) mg/dl Cholesterol (0-200) mg/dl LDL Cholesterol, Calc mg/dl VLDL Cholesterol, Calc mg/dl HDL Cholesterol mg/dl Cholesterol/HDL Ratio Medications Administered Current Inpatient Medications Acetaminophen (Acetaminophen 325 Mg Tab) 650 mg PO Q4H PRN PRN Reason: Pain or Fever Stop: 06/16/20 17:33 Aspirin (Aspirin 81 Mg Ectab) 81 mg PO DAILY LAINEY Stop: 06/17/20 08:59 Last Admin: 05/18/20 08:08 Dose: 81 mg Documented by: Cetirizine HCl (Cetirizine Hcl 10 Mg Tablet) 10 mg PO DAILY LAINEY Stop: 06/17/20 08:59 Last Admin: 05/18/20 08:08 Dose: 10 mg Documented by: Fluoxetine HCl (Fluoxetine Hcl 20 Mg Cap) 20 mg PO DAILY LAINEY Stop: 06/17/20 08:59 Last Admin: 05/18/20 08:08 Dose: 20 mg Documented by: Nitroglycerin (Nitroglycerin Sl 0.4 Mg/Tab Tab) 0.4 mg SL UD PRN PRN Reason: Chest Pain Stop: 06/16/20 17:33 Topiramate (Topiramate 25 Mg Tab) 25 mg PO BID LAINEY Stop: 06/16/20 20:59 Last Admin: 05/18/20 08:08 Dose: 25 mg Documented by: (1) Chest pain Chest pain type: unspecified Qualified Code(s): R07.9 - Chest pain, unspecified
--- NOTE | 2020-05-18 12:08 | Discharge Summary ---
Date of Service May 18, 2020 Admission HPI Per Admitting Provider Pt is 55 y/o F with PMH breast CA s/p surgery, anxiety, migraine VASQUEZ and obesity presented to ER with c/o CP today. Pt states was driving when she developed she developed anterior chest pressure with radiation bilateral neck and bilateral arms. Patient states symptoms lasted approximately 20 minutes and self resolved. Denies any shortness of breath, dizziness, palpitations, nausea, vomiting, diaphoresis. Since being in ER patient denies any recurrent chest pain or other symptoms. Denies fever/chills, diaphoresis, N/V/D/C, VASQUEZ, dizziness, syncope, vision changes, neck pain, orthopnea, cough, sore throat, choking, otalgia, rhinorrhea, abdominal pain, paresthesias, weakness, extremity weakness, extremity erythema, extremity edema, rashes, urinary symptoms. Patient quit smoking 2002 but smoked approximately 2 packs/week X 20 years. Denies family history of CAD. History echo 2015: EF: 60%, normal wall motion, no significant valve disease Admission Exam Per Admitting Provider General: no distress, obese Head: normocephalic, atraumatic Eyes: conjunctiva non-injected, anicteric ENT: normal inspection external ears, nose, mucous membranes moist Neck: supple, trachea midline, ROM intact Lungs: clear, no respiratory distress, no wheezing/rhonchi/rales CV: RRR, no murmur, chest wall without rashes and non-tender to palpation, no pretibial edema Abd: normal BS, soft, protuberant, non-tender Ext: no cyanosis or erythema, no calf tenderness, ROM intact Neuro: A&O x 3, no focal deficits noted, normal affect Skin: warm, dry Principal Diagnosis Chest pain, noncardiac Discharge Exam General: Middle-aged female, sitting up in bed, in no distress, obese Head: normocephalic, atraumatic Eyes: conjunctiva non-injected, anicteric ENT: normal inspection external ears, nose, mucous membranes moist Neck: supple, trachea midline, ROM intact Lungs: clear, no respiratory distress, no wheezing/rhonchi/rales CV: RRR, no murmur, chest wall without rashes and non-tender to palpation, no pretibial edema Abd: normal BS, soft, obese, non-tender Ext: no cyanosis or erythema, no lower extremity edema, no calf tenderness, ROM intact Neuro: A&O x 3, speech fluent, no facial asymmetry, moves all 4 extremities spontaneously and without difficulty Skin: warm, dry Discharge Data Allergies Allergy/AdvReac Type Severity Reaction Status Date / Time Sulfa (Sulfonamide Allergy Severe SHORTNESS Verified 05/17/20 13:34 Antibiotics) OF BREATH adhesive Allergy Unknown Redness of Verified 05/17/20 13:34 Skin codeine AdvReac Unknown "SICK" Verified 05/17/20 13:34 WITH TYLENOL W/CODEINE Consultations 05/17/20 13:42 ED Decision to Admit Stat 05/17/20 17:34 Consult Cardiology Routine Hospital Course (1) Chest pain: Pt is 55 y/o F with PMH breast CA s/p surgery, anxiety, migraine VASQUEZ and o besity presented to ER with c/o CP / epigastric pain. Pt states was driving when she developed anterior chest pressure with radiation bilateral neck and bilateral arms. Patient states symptoms lasted approximately 20 minutes and self resolved. Mentions she ate banana on empty stomach, which she thinks could have caused this In ER pt afebrile, P: 78, R: 18, BP: 164/88, 98% on RA. Initial troponin negative. EKG sinus rhythm without acute ST changes No CP or other symptoms while in ER R/O ACS. Risk factors: obesity, prior tobacco use -Given 324mg aspirin on admission -Repeat EKG in am -shows normal sinus rhythm, low voltage QRS, no significant change was found. -Troponin x3 - negative -Echo obtained -there were technical limitations due to patient's body habitus. Left ventricle is normal in size. Mild concentric LVH. No regional wall motion abnormalities noted. EF 55 to 60%. There is no gross valvular disease. The aortic root is normal size. There is no pericardial effusion. -lipid panel obtained - Total cholesterol 190, LDL 106, triglycerides 80, HDL 68 -Cardiology consulted - Discussed options of management, patient wishes to be followed by primary care physician and declined stress testing - is a reasonable decision given low likelihood of cardiac etiology. Patient stable for discharge but will return with any recurrence of symptoms. Follow-up with primary care (2) Anxiety: -Continue fluoxetine (3) Migraine headache: -Continue Topamax (4) Breast cancer: S/P bilateral mastectomy DVT Prophylaxis -SCDs Follows with Dr Zaynab Skinner for routine care Total Time Total Time Spent Total Time Spent (In Minutes): 40 Total Time Includes: Examination of the Patient, Discharge Planning, Medication Reconciliation and Communication With Other Providers Discharge Plan Discharge Items Patient Disposition: Home - Self-Care Reason For Visit: CP Discharge Diagnosis: Chest pain, noncardiac Activity: Per Instructions section Non-emergency contact: Primary Care Provider Call non-emergency contact if: your symptoms worsen Follow-up/Referrals: Zaynab Skinner, [Primary Care Provider] - Diet: Heart Healthy Addtl Attending Provider Instructions: Recommend to follow-up with primary care provider within 1 to 2 weeks. If you have any recurrent symptoms of chest pain, shortness of breath, d izziness, palpitations, lightheadedness, you should contact a healthcare provider. Either present to emergency room immediately or immediately call your PCPs office to further navigate your care. It was a pleasure taking care of you. Pending Studies at Discharge: No Stand-Alone Forms: My [facility], Work/School Release (Inpt), Smoking Cessation Medications and DC Order Prescriptions: New aspirin 81 mg Tablet,Delayed Release (Dr/Ec) 81 mg PO DAILY 30 Days Qty: 30 RF: 0 Continued cetirizine [Zyrtec] 10 mg Tablet 10 mg PO DAILY RF: 0 topiramate 25 mg tablet 25 mg PO BID RF: 0 fluoxetine 20 mg capsule 20 mg PO DAILY RF: 0 Discharge Orders: Discharge Order (Routine); Ordered 05/18/20 Ordered By: Sammy Sin Admission Data Admit Date/Time: 05/17/20 14:17 Attending Provider: Sammy Sin Admit Provider: Bess Haque Primary Care Provider: Zaynab Skinner Other Providers: Bess Haque ; Denis Winchester
[2020-05-18 12:42] VITALS: BP 131/84
--- NOTE | 2020-05-18 22:46 | Electrocardiogram Report ---
Test Reason : Blood Pressure : / mmHG Vent. Rate : 064 BPM Atrial Rate : 064 BPM P-R Int : 150 ms QRS Dur : 092 ms QT Int : 408 ms P-R-T Axes : 061 021 066 degrees QTc Int : 420 ms Normal sinus rhythm Low voltage QRS Borderline ECG When compared with ECG of 17-MAY-2020 11:48, No significant change was found Confirmed by Manuel Ramirez ([id number]) on 05/18/2020 10:46:08 PM Referred By: REFERRED SELF Confirmed By:Manuel Ramirez
== END 2020-05-18 12:55 | disposition home or self-care (01) ==
LOC: 2W 11:39 → ED 11:39 → SUATTDRO 14:17 → 2W 17:08

== ENCOUNTER 2022-04-25 07:54 | Observation (INO) ==
--- NOTE | 2022-03-14 10:52 | PAT Medication Instructions ---
Medication Instructions Date of Service March 14, 2022 Home Medications Medication Instructions Recorded tramadol 50 mg tablet 50 mg PO Q6H PRN #20 tab 07/22/21 fluoxetine 20 mg capsule 20 mg PO BID topiramate 25 mg tablet 25 mg PO BID tramadol 50 mg tablet 50 mg PO Q6H PRN cholecalciferol (vitamin D3) 25 mcg (1,000 unit) capsule (Vitamin D3) 25 mcg PO QAM fluticasone propionate 50 mcg/actuation nasal spray,suspension (Flonase Allergy Relief) 1 spray INTRANASAL DAILY loratadine 10 mg capsule 10 mg PO QAM DO NOT take the morning of surgery cholecalciferol (vitamin D3) 25 mcg (1,000 unit) capsule (Vitamin D3) 25 mcg PO QAM loratadine 10 mg capsule 10 mg PO QAM Take morning of surgery With a small sip of water, OTHERWISE NOTHING TO EAT OR DRINK AFTER MIDNIGHT: fluoxetine 20 mg capsule 20 mg PO BID topiramate 25 mg tablet 25 mg PO BID tramadol 50 mg tablet 50 mg PO Q6H PRN(if needed) fluticasone propionate 50 mcg/actuation nasal spray,suspension (Flonase Allergy Relief) 1 spray INTRANASAL DAILY Take evening before surgery fluoxetine 20 mg capsule 20 mg PO BID topiramate 25 mg tablet 25 mg PO BID tramadol 50 mg tablet 50 mg PO Q6H PRN(if needed) Other Notes If you have any questions please call us at [phone] or [phone] or [phone] or [phone]
--- NOTE | 2022-03-18 14:23 | Anesthesiology Consultation ---
Date of Service March 18, 2022 Assessment & Plan (1) Encounter for pre-operative examination: - COVID screening: Per assessment on 03/18: No known COVID-19 positive contacts or current COVID-19 related symptoms. Travel screen negative. Surgeon arranging preop COVID testing. Awaiting results. - S/P Right knee arthroscopy with PMM + chrondroplasty (07/22/21): Grade view 1 with Glidescope#3, ETT 7.5 at [facility]. Per 07/22/21 anesthesia post-op progress note, "On induction, patient's IV evidently infiltrated and she did not receive a full intubation dose of the medications. She appeared only partially sedated and immediately we mask ventilated patient with volatile anesthetic. A second IV was placed and patient was successfully intubated. Patient recalls being partially sedated but doesn't recall any events after we placed the face mask with volatile anesthetic. Informed the patient in postop about the IV infiltration and she did not have any questions or concerns." - Hx PONV: Improvement with scope patch. Will order for AM DOS. Chart Review Chart Review: Acceptable Risk for Surgery and Patient seen in Pre Admission Testing Teaching & Discussion Pre-Anesthesia Teaching/Discussion Notes: Instructed NPO after midnight before surgery,except medications with 15 cc of water. Medication instructions provided according to the PAT guidelines. History Surgery Operation Date: 04/25/22 07:00 Proposed Procedures p Right Total Knee Arthroplasty - Marlon Thomas, Height/Weight Height: 5 ft 7 in Weight: 144.7 kg Allergies Allergy/AdvReac Type Severity Reaction Status Date / Time Sulfa (Sulfonamide Allergy Severe Dyspnea Verified 03/14/22 09:37 Antibiotics) adhesive Allergy Unknown Skin Verified 03/14/22 09:37 redness codeine AdvReac Unknown "Sick" Verified 03/14/22 09:37 with tyenol with codeine Medications Home Medications Medication Instructions Recorded Confirmed Last Taken fluoxetine 20 mg capsule 20 mg PO BID 05/17/20 03/14/22 07/08/21 06:00 topiramate 25 mg tablet 25 mg PO BID 05/17/20 03/14/22 05/17/20 tramadol 50 mg tablet 50 mg PO Q6H PRN #20 tab 07/22/21 03/14/22 Unknown cholecalciferol (vitamin D3) 25 25 mcg PO QAM 03/14/22 03/14/22 Unknown mcg (1,000 unit) capsule (Vitamin D3) fluticasone propionate 50 1 spray INTRANASAL DAILY 03/14/22 03/14/22 Unknown mcg/actuation nasal spray,suspension (Flonase Allergy Relief) loratadine 10 mg capsule 10 mg PO QAM 03/14/22 03/14/22 Unknown Past Medical History Medical History (Updated 03/18/22 @ 14:57 by Radha Larios) Anxiety Breast cancer Left (2018) S/P R/L breast mastectomy (no limb restrictions per pt) Depression Migraine headache Morbid obesity Sleep apnea CPAP Exercise / Class Metabolic Activity II 4-5 Yardwork/Stairs/Walk up hill (one FS (no CP, no SOB)) Past Family History Family History Mother Dyslipidemia Past Surgical History Surgical History (Updated 03/18/22 @ 14:56 by Radha Larios) History of arthroscopic knee surgery Right knee arthroscopy with PMM + chrondroplasty (07/22/21): Grade view 1 with Glidescope#3, ETT 7.5 at [facility]. Per 07/22/21 anesthesia post-op progress note, "On induction, patient's IV evidently infiltrated and she did not receive a full intubation dose of the medications. She appeared only partially sedated and immediately we mask ventilated patient with volatile anesthetic. A second IV was placed and patient was successfully intubated. Patient recalls being partially sedated but doesn't recall any events after we placed the face mask with volatile anesthetic. Informed the patient in postop about the IV infiltration and she did not have any questions or concerns." History of cholecystectomy History of colonoscopy History of hysterectomy History of mastectomy R/L for left breast cancer Nausea and vomiting after administration of anesthetic agent S/P foot surgery, left Pins/screws (unknown side) Past Anesthesia History No Hx of Anesthesia Complications (except PONV) and No Family Hx of Anesthesia Complications History of PONV History of PONV (Significant improvement with scope patch in the past) Social History Smoking Status: Never smoker Do You Dip or Chew Tobacco: No Hx Alcohol Use: No Hx Substance Use: No Review of Systems Patient denies chest pain, shortness of breath, dyspnea on exertion, fever, chills, cough, wheezing, palpitations. Physical Exam Vital Signs VITALS BP 134/82 P 75 TEMP 98.1 SP02 94%RA RESP 16 PHYSICAL Full cervical extension range of motion. Full TMJ range of motion. TMD 3 finger breaths Mallampati Score 3 Dentition: full dentures upper/lower Lungs: clear throughout to auscultation Cardiac: regular rate and rhythm, no murmurs noted Spine: normal Carotid arteries: negative bruit Extremities: no edema Lab Results Anesthesia Preop Results Results Anesthesia Widget: WBC 8.00 K/uL (4.8-10.8) 03/18/22 Hgb 14.2 g/dL (12.0-16.0) 03/18/22 Hct 42.2 % (37-47) 03/18/22 Plt 265 K/uL (130-400) 03/18/22 Na 137 mmol/L (136-145) 03/18/22 K 3.8 mmol/L (3.5-5.1) 03/18/22 Cl 106 mmol/L (98-107) 03/18/22 CO2 23 mmol/L (21-32) 03/18/22 BUN 13 mg/dl (6-23) 03/18/22 Creat 0.68 mg/dl (0.6-1.2) 03/18/22 Glucose Level 77 mg/dl (70-99(Fasting)) 03/18/22 PT 10.5 Seconds (9.0-12.0) 03/18/22 PTT 27.3 Seconds (21.0-31.0) 03/18/22 INR 1.0 (0.9-1.1) 03/18/22 Blood Type A Positive 03/18/22 Antibody Screen NEGATIVE 03/18/22 Testing Electrocardiogram Date: 07/18/21 NSR at 68bpm. Chest X-Ray Date: 03/18/22 Findings: + NAD Echocardiogram Date: 05/18/20 EF 55-60%. No RWMA. Mild cLVH. No significant valvular disease.
--- NOTE | 2022-04-24 08:56 | History & Physical Report ---
Date of Service April 24, 2022 Assessment & Plan (1) Osteoarthritis of right knee: We will proceed with a right total knee arthroplasty. Postoperatively she will be started on aspirin for DVT prophylaxis and kept overnight in the hospital for postop medical management. She plans to have the hospitalist set up home health upon discharge. History of Present Illness Chief Complaint: Osteoarthritis of the right knee. Primary Care Provider: Zaynab Skinner DO Renetta is a pleasant 56-year-old female who has been dealing with chronic right knee pain. I did a right knee arthroscopy on her in July of 2021. At that point, I saw a lot of chondral loss. Unfortunately, she has struggled with the knee postoperatively. She still has difficult time walking long distances. She has constant knee pain. We have done multiple injections. After failing extensive conservative treatment, she has elected to proceed with a right total knee arthroplasty. . Allergies Allergy/AdvReac Type Severity Reaction Status Date / Time Sulfa (Sulfonamide Allergy Severe Dyspnea Verified 03/14/22 09:37 Antibiotics) adhesive Allergy Unknown Skin Verified 03/14/22 09:37 redness codeine AdvReac Unknown "Sick" Verified 03/14/22 09:37 with tyenol with codeine Home Medications Medication Instructions Recorded Confirmed Type fluoxetine 20 mg capsule 20 mg PO BID 05/17/20 03/14/22 History topiramate 25 mg tablet 25 mg PO BID 05/17/20 03/14/22 History tramadol 50 mg tablet 50 mg PO Q6H PRN pain #20 tabs 07/22/21 03/14/22 Rx cholecalciferol (vitamin D3) 25 25 mcg PO QAM 03/14/22 03/14/22 History mcg (1,000 unit) capsule (Vitamin D3) fluticasone propionate 50 1 spray intranasal DAILY 03/14/22 03/14/22 History mcg/actuation nasal spray,suspension (Flonase Allergy Relief) loratadine 10 mg capsule 10 mg PO QAM 03/14/22 03/14/22 History Past Med/Surg History Medical History Anxiety Breast cancer Left (2017) S/P R/L breast mastectomy (no limb restrictions per pt) Depression Migraine headache Morbid obesity Sleep apnea CPAP Surgical History History of arthroscopic knee surgery Right knee arthroscopy with PMM + chrondroplasty (07/22/21): Grade view 1 with Glidescope#3, ETT 7.5 at [facility]. Per 07/22/21 anesthesia post-op progress note, "On induction, patient's IV evidently infiltrated and she did not receive a full intubation dose of the medications. She appeared only partially sedated and immediately we mask ventilated patient with volatile anesthetic. A second IV was placed and patient was successfully intubated. Patient recalls being partially sedated but doesn't recall any events after we placed the face mask with volatile anesthetic. Informed the patient in postop about the IV infiltration and she did not have any questions or concerns." History of cholecystectomy History of colonoscopy History of hysterectomy History of mastectomy R/L for left breast cancer Nausea and vomiting after administration of anesthetic agent S/P foot surgery, left Pins/screws (unknown side) Family History Mother Dyslipidemia Social History Smoking Status: Never smoker Second Hand Exposure: No; Hx Alcohol Use: No Hx Substance Use: No Preferred Language: [place] Communication Ability: Effective Telephone Order Supervisor Required: No Beliefs That Will Affect Care: None Current Living Situation: Spouse Feels Safe at Home: Yes Assistive Devices: Denture - Upper, Denture - Lower and Glasses Review of Systems All systems reviewed & are unremarkable except as noted in HPI & below. Physical Exam On physical examination of the right knee, she has a large soft tissue envelope. She has range of motion of 0 to 110 degrees. No instability. Pain of the distal medial femoral condyle.. Constitutional WD/WN, vitals as above Eyes PERRL, conjunctivae normal, anicteric sclerae ENMT external ear and nose normal, oropharynx normal Neck trachea midline, no thyromegaly Respiratory normal respiratory effort, lungs clear to auscultation Cardiovascular RRR, no murmur, no edema Gastrointestinal (Abdomen) normal bowel sounds, soft, nontender, no hepatosplenomegaly Skin no rashes, warm and dry Psychiatric A+Ox3, euthymic affect Results & Data Results & Data Laboratory Results . Diagnostic Findings X-rays of the right knee show advanced osteoarthritis with joint space narrowing, osteophyte formation, and [id number] articulation. PG Care Time/CCT Total # of Minutes Spent Total Time Spent with Patient: Total time spent is greater than 50% in coordination of care (as documented) at patient's floor/unit and/or counseling patient: Coding Level of Care Code None Diagnoses Osteoarthritis of right knee M17.11
[~2022-04-25 07:54] MED LIST changes: +ACETAMINOPHEN 500 MG TAB PO SCH; +BUPIVACAINE 0.5 % 5 MG/1 ML PF 10ML VIAL ONE; -BUPR-79 PO; -CLR10 PO; +EPINEPHrine INJ 1 MG/ML AMP ONE; +FAMOTIDINE 20 MG TAB PO SCH; -FLUO20CA35 PO; +GABAPENTIN 300 MG CAP PO SCH; -GADAVIST IV PRN; +Ketorolac (*for OR use only*) 30 MG, dexAMETHasone 4 MG, KETAMINE HCL (**OR use only) 1... INFIL SCH; +LR 500ML BOLUS, THEN 15ML/HR IV SCH; +LR 60ML/HR IV SCH; -PANT40TA PO; +ROPIVACAINE 0.5% 5 MG/ML 30 ML VIAL ONE; +Scopolamine 1 MG TDSY TD SCH; +TRANEXAMIC ACID 1,000 MG **IV Intra-op IV SCH; +TRANEXAMIC ACID 1,000 MG **IV Pre-op IV SCH; +dexAMETHasone 4 MG TAB PO SCH
[2022-04-25] MEDS ORDERED: fentaNYL citrate 100 MCG/2 ML VIAL IV PRN (08:19)
[2022-04-25] MEDS ORDERED: ePHEDrine sulfate 50 MG/ML AMP IV PRN (08:19)
[2022-04-25] MEDS ORDERED: PHENYLEPHRINE 100MCG/ML 5ML SYR IV PRN (08:19)
[2022-04-25] MEDS ORDERED: MEPERIDINE HCL 25 MG/ML CARP/VIAL IV PRN (08:19)
[2022-04-25] MEDS ORDERED: LABETALOL HCL IV 5 MG/ML 20ML IV PRN (08:19)
[2022-04-25] MEDS ORDERED: ONDANSETRON INJ 2 MG/ML 2 ML VIAL IV PRN ×2 (08:19→13:03)
[2022-04-25] MEDS ORDERED: ATROPINE SULFATE 0.1 MG/ML 10ML SYR IV PRN (08:19)
[2022-04-25] MEDS ORDERED: PROPOFOL IV EMULSION 10 MG/ML 20 ML VIAL IV ONE ×3 (09:21→11:35)
[2022-04-25] MEDS ORDERED: LIDOCAINE 2% 20 MG/ML 5 ML SYR IV ONE (09:21)
[2022-04-25] MEDS ORDERED: fentaNYL citrate 100 MCG/2 ML VIAL ONE (09:21)
[2022-04-25] MEDS ORDERED: MIDAZOLAM HCL 1 MG/ML 2ML VIAL ONE ×2 (09:22→10:09)
--- NOTE | 2022-04-25 09:23 | History & Physical Bridge Note ---
Date of Service April 25, 2022 History & Physical Bridge Note I have examined the patient, reviewed the History & Physical and in the interval since the performance of the History & Physical I have noted the following changes of clinical significance: no changes noted
[2022-04-25] MEDS ORDERED: ORTHO JOINT ANESTHETIC ONE (09:52)
[2022-04-25] MEDS ORDERED: ONDANSETRON INJ 2 MG/ML 2 ML VIAL ONE (10:39)
[2022-04-25] MEDS ORDERED: DEXAMETHASONE SOD INJ 4 MG/ML VIAL ONE (10:39)
--- NOTE | 2022-04-25 11:34 | Operative Report ---
PG Post Operative Report Pre & Post Diagnosis Operation Date: 04/25/22 10:30 Pre-Op Diagnosis: Degenerative Joint Disease Right Knee Post-Op Diagnosis: Degenerative Joint Disease Right Knee I identified the patient and participated in the time-out.: Yes Procedure Operation Date: 04/25/22 10:30 Actual Procedures p Right Total Knee Arthroplasty(Right) - Marlon Thomas DO Surgeon Marlon Thomas DO Distribution Clerk Kel Smith PA-C Estimated Blood Loss 30 Findings Consistent with Post-Op Diagnosis Specimens Right femoral and tibial bone Description of Procedure Implants used: I used a Tesfaye Persona total knee arthroplasty system with a size 8 standard PS femur, D tibia, 31 oval patella, and a size 10 CPS polyethylene bearing. All components were cemented in place with Biomet cement. Renetta arrived [facility] for the above procedure. She was seen in the preoperative holding area and the operative extremity was identified and signed. She was given a preoperative antibiotic, TXA, a spinal anesthetic and an adductor nerve block. She was taken back to the operating room and laid on the table in supine position. She was given basic sedation. The operative knee was then prepped and draped in sterile fashion. A timeout was done, and the patient and the operative extremity was properly identified. A midline incision was made directly over the patella. Dissection was taken down to the extensor mechanism. A subvastus arthrotomy was used. The medial retinaculum was released and the fat pad was mostly excised. The knee was flexed and the ACL, PCL, and meniscus were removed. A drill was sent down the center of the femoral canal followed by an intramedullary mala. Off that mala a distal femoral cutting block was placed. 9 mm was resected off the distal femur at 5 of valgus. A posterior referencing AP sizing guide was then placed on the distal femur. The femur measured to be a size 8. 2 drill holes were placed in 3 of external rotation. A 4-in-1 cutting block was then impacted into place. Anterior, posterior, and chamfer cuts were then made. The proximal tibia was then exposed. An external tibial alignment guide was placed. A tibial cut guide was then anchored in place and the proximal tibia was then resected. The posterior aspect of the knee was then opened up and any additional meniscus fragments and osteophytes were removed. The tibia measured to be a size D. The tibial plate was then placed in the appropriate rotation and the tibia was drilled and punched. Trial components were then placed. I used a size 10 CPS polyethylene insert. The knee was brought through a full range of motion and felt to be stable. The peg holes for the femoral component were then drilled. The patella was then everted and 9 mm was resected off the posterior aspect of the patella. The patella measured to be a size 31 oval. 3 peg holes were then drilled. A trial patella was placed. The knee was once again brought through a full range of motion and felt to be stable. Trial components were then removed. The surrounding soft tissues were injected with 100 cc of an orthopedic pain control cocktail. All components were then cemented into place with Biomet cement. The final polyethylene insert was then snapped into place. Once cement was dry the tourniquet was deflated. Hemostasis was obtained. A dilute betadyne lavage was then done for 3 minutes. The joint was then irrigated with normal saline solution. The subvastus arthrotomy was then closed with #1 Vicryl suture. The skin was closed with 2-0 Vicryl, 3-0V lock suture, and luis a. A soft compressive dressing was placed. She was then transferred to a hospital bed and taken to the postanesthesia care unit in stable condition. She tolerated the procedure well. Kel Smith PA-C, was present for the entire procedure. He was critical for patient positioning, prepping, draping, retraction exposure, wound closure and application of sterile dressing. I attest to the content of the Intraoperative Record and any orders documented therein. Any exceptions are noted below.
--- NOTE | 2022-04-25 12:46 | Anesthesiology Progress Note ---
Date of Service April 25, 2022 Anesthesia Post Procedure Vital Signs Vital Signs: Temp Pulse Pulse Resp BP BP Pulse Ox 04/25/22 12:35 36.3 C L 67 14 102/64 94 04/25/22 12:25 69 14 100/63 97 04/25/22 12:15 64 14 104/63 99 04/25/22 12:05 36.4 C L 71 12 92/63 L 97 04/25/22 08:36 36.9 C 88 20 124/90 95 O2 Del Method O2 Flow Rate 04/25/22 12:35 Room Air 04/25/22 12:25 Oxymask 3 04/25/22 12:15 Oxymask 5 04/25/22 12:05 Oxymask 5 04/25/22 08:36 Room Air Transfer of Care Handoff Completed per policy Notes Mental Status: alert / awake / arousable Patient Amnestic to Procedure: Yes Nausea / Vomiting: adequately controlled Pain: adequately controlled Airway Patency, RR, SpO2: stable & adequate BP & HR: stable & adequate Hydration State: stable & adequate Neuraxial Anesthesia: was administered and sensory block is resolving Anesthetic Complications: no major complications apparent and Pt Satisfied with anesthetic care
[2022-04-25] MEDS ORDERED: NALOXONE HCL 0.4 MG/1 ML VIAL/CARP IV PRN (13:03)
[2022-04-25] MEDS ORDERED: METOCLOPRAMIDE HCL INJ 5 MG/ML 2 ML VIAL IV PRN (13:03)
[2022-04-25] MEDS ORDERED: HYDROmorphone INJ 0.5 MG/0.5 ML SYR IV PRN (13:03)
[2022-04-25] MEDS ORDERED: bisacodyL 10 MG SUPP PR PRN (13:03)
[2022-04-25] MEDS ORDERED: MAGNESIUM HYDROXIDE SUSP 30 ML UDC PO PRN (13:03)
--- NOTE | 2022-04-25 13:04 | XRay Report ---
RIGHT KNEE 2 VIEWS History: Right total knee arthroplasty. Degenerative arthritis. Postop. FINDINGS: The patient is status post a right total knee arthroplasty. The hardware is intact. No frac ture or dislocation. Skin luis a are in place. IMPRESSION: Right total knee arthroplasty. No evidence for hardware complication. ACT 112: Negative or not required by law. Electronically signed by: Gerard Jamison M.D. 04/25/2022 1:03 PM
[2022-04-25] MEDS: SODIUM CHLORIDE 0.9% 1000ML 1,000 ML IV SCH (13:24)
[2022-04-25] MEDS: ACETAMINOPHEN 500 MG TAB PO SCH ×2 (13:25→21:20)
[2022-04-25] MEDS: KETOROLAC 30 MG/ML VIAL IV SCH ×2 (13:25→18:00)
[2022-04-25] MEDS: Scopolamine CHECK PATCH PLACEMENT SCH (15:12)
--- NOTE | 2022-04-25 15:21 | Operative Report ---
Post Operative Report Pre & Post Diagnosis Operation Date: 04/25/22 10:30 Pre-Op Diagnosis: Degenerative Joint Disease Right Knee Post-Op Diagnosis: Degenerative Joint Disease Right Knee I identified the patient and participated in the time-out.: Yes Procedure Operation Date: 04/25/22 10:30 Actual Procedures p Right Total Knee Arthroplasty(Right) - Marlon Thomas DO Surgeon Molly Thomas MD Collect On Delivery Clerk Kel Smtih PA-C, Tulio Patricia MD Estimated Blood Loss 30 Findings Consistent with Post-Op Diagnosis Consistent with post op diagnosis Specimens No specimens Description of Procedure I participated in prepping dressing and assisted Dr. Thomas during the procedure. Please see Dr. Thomas note. I attest to the content of the Intraoperative Record and any orders documented therein. Any exceptions are noted below.
[2022-04-25] MEDS: ceFAZolin 2000MG 2,000 MG/15 ML SYR IV SCH (18:00)
[2022-04-25] MEDS ORDERED: SENNA 8.6 MG TAB PO SCH (21:00)
[2022-04-25] MEDS: oxyCODONE HCL IR 5 MG TAB (IMMEDIATE RELEASE) PO PRN (21:07)
[2022-04-25] MEDS: FLUoxetine HCL 20 MG CAP PO SCH (21:20)
[2022-04-25] MEDS: DOCUSATE SODIUM 100 MG CAP PO SCH (21:20)
[2022-04-25] MEDS: ASPIRIN 81 MG ECTAB PO SCH (21:21)
[2022-04-25] MEDS: TOPIRAMATE 25 MG TAB PO SCH (21:22)
[2022-04-26] MEDS: SODIUM CHLORIDE 0.9% 1000ML 1,000 ML IV SCH (00:09)
[2022-04-26] MEDS: Scopolamine CHECK PATCH PLACEMENT SCH ×2 (00:10→09:01)
[2022-04-26] MEDS: KETOROLAC 30 MG/ML VIAL IV SCH ×2 (01:55→06:30)
[2022-04-26] MEDS: ceFAZolin 2000MG 2,000 MG/15 ML SYR IV SCH (01:56)
[2022-04-26 06:28] LABS: Hematocrit (blood only) 38.5 % (34.1-44.9); Hemoglobin 12.6 g/dl (12.0-16.0); Mean Corpuscular Hgb Conc 32.7 g/dL (32.0-36.0); Mean Corpuscular Volume 91.7 fL (80.0-100.0); Mean Platelet Volume 10.5 fL (9.4-12.3); Platelet Count 252 K/uL (130-400); RDW Coefficient of Variation 12.2 % (11.5-14.5); RDW Standard Deviation 40.7 fL (36.4-46.3); White Blood Count 13.82 K/ul (4.8-10.8)
[2022-04-26] MEDS: ACETAMINOPHEN 500 MG TAB PO SCH (06:29)
[2022-04-26] MEDS: oxyCODONE HCL IR 5 MG TAB (IMMEDIATE RELEASE) PO PRN (06:38)
[2022-04-26 06:59] LABS: BUN Creatinine Ratio 20.8 (10-20); Calcium 8.6 mg/dl (8.5-10.1); Creatinine Clr Calc Pharmacy 131.8 ml/min; Est GFR (African American) 107.7 ml/min; Potassium 3.8 mmol/L (3.5-5.1)
[2022-04-26] MEDS ORDERED: dexAMETHasone 4 MG TAB PO SCH (08:00)
--- NOTE | 2022-04-26 08:34 | Orthopedic Progress Note ---
Date of Service April 26, 2022 Assessment & Plan (1) Status post right knee replacement: Overall she is doing well. She is having much pain in the right knee. She will be seen by physical therapy today for ambulation and range of motion exercises. She is on aspirin for DVT prophylaxis. She can be discharged home later today. She will follow-up with orthopedics in 2 weeks. Carli Jackson was seen and examined at bedside this morning. Overall she is doing very well. She is not having much pain in the right knee. She has been up and ambulating to the bathroom. She has no complaints.. Review of Systems All systems reviewed & are unremarkable except as noted in HPI & below. Physical Exam On physical examination of the right knee, the dressing is clean and dry. Her leg is out in full extension. She has active dorsiflexion plantarflexion of her right ankle.. Results & Data Results & Data Laboratory Results . Diagnostic Findings Postoperative x-rays of the right knee show the prosthesis to be in anatomic alignment without any evidence of fracture, screws, or loosening. PG Care Time/CCT Total # of Minutes Spent Total Time Spent with Patient: Total time spent is greater than 50% in coordination of care (as documented) at patient's floor/unit and/or counseling patient: Coding Level of Care Code 96383 Post Operative Follow-Up Diagnoses Status post right knee replacement Z96.651
--- NOTE | 2022-04-26 08:35 | Discharge Summary ---
Date of Service April 26, 2022 Admission HPI (Per Admitting) Renetta is a pleasant 56-year-old female who has been dealing with chronic right knee pain. I did a right knee arthroscopy on her in July of 2021. At that point, I saw a lot of chondral loss. Unfortunately, she has struggled with the knee postoperatively. She still has difficult time walking long distances. She has constant knee pain. We have done multiple injections. After failing extensive conservative treatment, she has elected to proceed with a right total knee arthroplasty. . Admission Exam (Per Admitting) On physical examination of the right knee, she has a large soft tissue envelope. She has range of motion of 0 to 110 degrees. No instability. Pain of the distal medial femoral condyle.. Principal Diagnosis Same as "Discharge Diagnosis" noted below under Discharge Instructions. Discharge Exam On physical examination of the right knee, the dressing is clean and dry. Her leg is out in full extension. She has active dorsiflexion plantarflexion of her right ankle.. Discharge Data Procedures Performed Operation Date: 04/25/22 10:30 Actual Procedures p Right Total Knee Arthroplasty(Right) - Marlon Thomas DO Ordered Studies 04/25/22 05:00 US - OR guided needle placemen Routine Hospital Course (1) Status post right knee replacement: On April 26, 2022 Gracie arrived at [facility] and underwent a right total knee arthroplasty without complication. She had a spinal anesthetic. Postoperatively she was started on aspirin for DVT prophylaxis and transferred to the general orthopedic floors. Her hospital course was uneventful. On postop day #1, her vital signs were stable and her pain was well controlled. She was able to participate well with physical therapy doing ambulation and range of motion exercises. She was then discharged home. She can follow-up with orthopedics in 2 weeks. PG Care Time/CCT Total # of Minutes Spent Total Time Spent with Patient: Total time spent is greater than 50% in coordination of care (as documented) at patient's floor/unit and/or counseling patient: Discharge Plan Discharge Items Patient Disposition: Home - Home Health Services Reason For Visit: Degenerative Joint Disease Right Knee Discharge Diagnosis: Right knee replacement Activity: Per Instructions section Non-emergency contact: Surgeon Call non-emergency contact if: your wound has increased redness and your wound has increased drainage Follow-up/Referrals: Kopinski,Zaynab L., DO [Primary Care Provider] - Diet: Regular Addtl Attending Provider Instructions: Activity and Therapy Recommendations: * If you are using [facility] then therapy will be provided at your home until they feel you have accomplished all of your goals. * If you are using [facility] then Physical Therapy will be provided until they feel you are ready to start Outpatient Physical Therapy. * If you are not using home therapy then Outpatient Physical Therapy should star t about 3-5 days from your day of surgery. Therapy will last about 6-10 weeks * It is important not to put a pillow under your knee when you are relaxing or sleeping. It is just as important to make sure you are getting your knee perfectly straight as it is to regain your knee bend. * You were shown a series of exercises in the hospital. Do these exercises three times each day including the exercises you were shown in physical therapy. * Get up and walk several times each day. For the first four weeks, try not to stand or walk for more than one hour at a time. If you do stand or walk for more than one hour, you will not hurt anything, but your leg will likely swell. * As you feel comfortable, you may change from the walker or crutches to a cane and then to independent walking. Medications: * Narcotic You will likely be sent home from the hospital with a prescription for the narcotic pain medication that worked best throughout your stay. * Aspirin Most patients will be required to take Aspirin 81mg twice a day for 6 weeks after surgery. This is obtained [id number] and a prescription is not necessary. * Other medications may be prescribed for specific circumstances. If you have any questions, please call the office at . * Resume previous home medications unless otherwise instructed TEDs/Elastic Stockings: The white elastic stockings help limit swelling and prevent blood clots from forming in your legs.~ The more you wear them, the more they work. Wear them for six weeks. Dressing Care: The dressing can be changed after physical therapy on postop day #1. Daily dry dressing changes for a few days, especially if the incision is still draining some. If the incision is not draining then you may leave the luis a open to air. If there is a little bit of drainage or if the luis a are getting stuck on your clothing then cover the incision with a dry dressing. The luis a will be removed at your 2 week follow-up appointment. Showering: You may shower 5 days from the day of surgery as long as the incision is no longer draining. You may shower with the luis a exposed. Let soapy water run over the luis a and pat them dry. Do not scrub or soak the incision. Things To Watch For: * Drainage from the incision site that occurs more than one week after your surgery. * Increased redness at the incision site. * Fever above 102 degrees Fahrenheit. * Unusual chest pain or shortness of breath. * Call [facility] at with any of the above problems Follow-Up Visit: Follow-up with Dr. Thomas's PA (Marlon Ramos) 2-3 weeks after your day of surgery. He will remove your luis a and answer any questions. If you have any additional questions or concerns, Dr Thomas is usually in the office at the same time and will be available An appointment was probably scheduled when you signed-up for surgery in the office. If you have any questions call Office Instructions: More detailed instructions as well as Frequently Asked Questions were provided in a folder by our office when you signed-up for surgery. Please review these instructions when you get home. If you have any further questions or concerns, please feel free to call the office at [phone] Pending Studies at Discharge: No Stand-Alone Forms: My [facility], Smoking Cessation Medications and DC Order Prescriptions: New aspirin 81 mg Tablet,Delayed Release (Dr/Ec) 81 mg PO BID 42 Days Qty: 84 0RF oxycodone-acetaminophen 5-325 mg tablet 1 tab PO Q6H PRN (Reason: pain) Qty: 30 0RF Continued topiramate 25 mg tablet 25 mg PO BID fluoxetine 20 mg capsule 20 mg PO BID fluticasone propionate [Flonase Allergy Relief] 50 mcg/actuation [place],Suspension 1 spray INTRANASAL DAILY cholecalciferol (vitamin D3) [Vitamin D3] 25 mcg (1,000 unit) Capsule 25 mcg PO QAM loratadine 10 mg Capsule 10 mg PO QAM Discharge Orders: Discharge Order (Routine); Ordered 04/26/22 Ordered By: Marlon Thomas Admission Data Admit Date/Time: 04/25/22 12:08 Attending Provider: Marlon Thomas Admit Provider: Marlon Thomas Primary Care Provider: Zaynab Skinner
[2022-04-26] MEDS ORDERED: LORATADINE 10 MG TAB PO SCH (09:00)
[2022-04-26] MEDS ORDERED: CHOLECALCIFEROL 1,000 UNITS 25 MCG TAB PO SCH (09:00)
[2022-04-26] MEDS ORDERED: FLUTICASONE PROPIONATE NA SPR 16 GM BTL SCH (09:00)
[2022-04-26] MEDS ORDERED: MULTIVITAMIN TAB PO SCH (09:00)
[2022-04-26] MEDS: ASPIRIN 81 MG ECTAB PO SCH (09:01)
[2022-04-26] MEDS: FLUoxetine HCL 20 MG CAP PO SCH (09:01)
[2022-04-26] MEDS: DOCUSATE SODIUM 100 MG CAP PO SCH (09:01)
[2022-04-26] MEDS: TOPIRAMATE 25 MG TAB PO SCH (09:02)
== END 2022-04-26 11:25 | disposition home health service (06) ==
LOC: 3N 07:54 → ASU 07:54